=== PATIENT | male | born 1980 | race Caucasian/White ===

== ENCOUNTER 2017-02-21 15:04 | Emergency (ER) | payer OTHER ==
[2017-02-21] MEDS ORDERED: TETRACAINE HCL 0.5% OPH SOLN 2 ML OU ONE (15:56)
--- NOTE | 2017-02-21 16:27 | ER Document Report ---
HPI - HPI Patient complains to provider of: eye pain Onset: Other - 3 weeks Onset/Duration: Persistent Quality of pain: Burning Pain Level: 4 Context: Patient complains of bilateral eye redness and pain for the past 3 weeks that has gradually been getting worse. Patient has been treating [id number] with Visine eyedrops. Patient denies any itching or drainage from the eyes. Patient does report that he has had tearing occasionally that worsened today. Patient feels that whenever he reads small print that his vision is slightly blurred. Patient denies any injury. Patient denies any use of contact lenses or glasses. [facility] and sent here for further evaluation Associated Symptoms: Other - Eye pain and redness Exacerbated by: Denies Relieved by: Denies - ROS ROS below otherwise negative: Yes Systems Reviewed and Negative: Yes All other systems reviewed and negative - CONSTITUTIONAL Constitutional: DENIES: Fever - EENT EENT: REPORTS: Eye problems. DENIES: Congestion - NEURO Neurology: DENIES: Headache - GASTROINTESTINAL Gastrointestinal: DENIES: Nausea, Patient vomiting - MUSCULOSKELETAL Musculoskeletal: DENIES: Neck Pain - DERM Skin Color: Normal, [place] Skin Problems: None Past Medical History - General Information source: Patient - Social History Smoking Status: Never Smoker Frequency of alcohol use: None Drug Abuse: Marijuana Occupation: [employer] Lives with: Family Family History: Reviewed & Not Pertinent - Past Medical History Cardiac Medical History: Reports: Hx Hypertension Renal/ Medical History: Denies: Hx Peritoneal Dialysis GI Medical History: Reports: Hx Gastroesophageal Reflux Disease, Hx Irritable Bowel Psychiatric Medical History: Reports: Hx Anxiety, Hx Attention Deficit Hyperactivity Disorder, Hx Post Traumatic Stress Disorder Past Surgical History: Reports: Hx Orthopedic Surgery - Spinal fusion Vertical Provider Document - CONSTITUTIONAL Agree With Documented VS: Yes Exam Limitations: No Limitations General Appearance: WD/WN, No Apparent Distress - INFECTION CONTROL TRAVEL OUTSIDE OF THE U[place]. IN LAST 30 DAYS: No - HEENT HEENT: Atraumatic, Normocephalic, PERRLA Notes: EOMI, no fluoroscein uptake, no corneal abrasion/dendrite/FB, or ulcer. Right eye intraocular pressure 11, left 14. Consulted with Dr. Garcia at [facility] who advises having patient use preservative free tears and follow-up in the office. Office staff made an appointment for Tuesday the at 8 AM - NECK Neck: Normal Inspection - RESPIRATORY Respiratory: Breath Sounds Normal, No Respiratory Distress - CARDIOVASCULAR Cardiovascular: Regular Rate, Regular Rhythm - MUSCULOSKELETAL/EXTREMETIES Musculoskeletal/Extremeties: MAEW - NEURO Level of Consciousness: Awake, Alert, Appropriate Motor/Sensory: No Motor Deficit - DERM Integumentary: Warm, Dry, No Rash Discharge - Discharge Clinical Impression: Redness, eye Eye pain Qualifiers: Laterality: bilateral Qualified Code(s): H57.13 - Ocular pain, bilateral Condition: Stable Disposition: HOME, SELF-CARE Instructions: Eyedrop Use ([facility]) Additional Instructions: Return immediately for any new or worsening symptoms Followup with your primary care provider, call tomorrow to make a followup appointment Follow up with Dr. Garcia February 25 at 8 AM. You'll need to contact your primary doctor prior to the appointment to obtain your referral. Do not use any visine drops [id number]. Only use preservative free rewetting tears such as systane (make sure it is preservative free) Forms: Return to Work Referrals: SRAVAN GARCIA MD [ACTIVE STAFF] - 02/25/17
[2017-02-21 16:45] VITALS: BP 142/90
== END 2017-02-21 16:45 | disposition home or self-care (01) ==
LOC: ER 15:04
DX: H57.13 Ocular pain, bilateral (principal); H57.8 Other specified disorders of eye and adnexa; I10 Essential (primary) hypertension; K21.9 Gastro-esophageal reflux disease without esophagitis
CPT/HCPCS: 99283

== ENCOUNTER 2017-11-01 16:32 | Emergency (ER) | payer OTHER ==
[2017-11-01] MEDS ORDERED: NORMAL SALINE 1000 ML 1,000 ML IV ONE ×2 (20:48→22:35)
--- NOTE | 2017-11-01 20:52 | ER Document Report ---
ED Medical Screen (RME) - General Chief Complaint: Abdominal Pain Stated Complaint: STOMACH PAIN Time Seen by Provider: 11/01/17 20:47 Mode of Arrival: Ambulatory Information source: Patient Notes: Patient is a 37-year-old male who presents with right lower quadrant left lower quadrant severe abdominal pain that started 5 days ago. He was seen at the emergency department at [facility] on Tuesday and diagnosed with diverticulitis. He was given medications that included Cipro, Flagyl, Reglan, Percocet and was told he would be better in 48 hours. He states he is not feeling any better. He endorses chills but denies any fever, endorses nausea, headache, lightheadedness,m with intermittent diarrhea but denies any vomiting. [facility] was told to come to the emergency department because of how severe his abdominal pain is. He denies any prior abdominal surgery. TRAVEL OUTSIDE OF THE [place] IN LAST 30 DAYS: No - Related Data Allergies/Adverse Reactions: No Known Allergies Allergy (Unverified 06/25/16 16:45) Past Medical History - Past Medical History Cardiac Medical History: Reports: Hx Hypertension Renal/ Medical History: Denies: Hx Peritoneal Dialysis GI Medical History: Reports: Hx Gastroesophageal Reflux Disease, Hx Irritable Bowel Psychiatric Medical History: Reports: Hx Anxiety, Hx Attention Deficit Hyperactivity Disorder, Hx Post Traumatic Stress Disorder Past Surgical History: Reports: Hx Orthopedic Surgery - Spinal fusion Review of Systems - Review of Systems Constitutional: Chills. denies: Fever Gastrointestinal: Abdominal pain, Diarrhea, Nausea, Poor appetite. denies: Vomiting Genitourinary: denies: Dysuria Physical Exam - Vital signs Vitals: Temp Pulse Resp BP Pulse Ox 98.7 F 81 20 147/103 H 98 11/01/17 16:36 11/01/17 16:36 11/01/17 16:36 11/01/17 16:36 11/01/17 16:36 - Notes Notes: General: Alert and oriented, appears uncomfortable, vital signs stable no fever Abdomen: Tender to palpation and right lower quadrant, suprapubic and left lower quadrant areas. Voluntary guarding noted. No rigidity. Normal bowel sounds. Course - Re-evaluation Re-evalutation: 11/01/17 20:52 I have greeted and performed a rapid initial assessment of this patient. A comprehensive ED assessment and evaluation of the patient, analysis of test results and completion of the medical decision making process will be conducted by additional ED providers. - Vital Signs Vital signs: Temp Pulse Resp BP Pulse Ox 98.7 F 81 20 147/103 H 98 11/01/17 16:36 11/01/17 16:36 11/01/17 16:36 11/01/17 16:36 11/01/17 16:36
[2017-11-01 22:09] LABS: ABSOLUTE BASOPHILS # (AUTO) 0.1 10^3/uL (0.0-0.2); ABSOLUTE EOSINOPHILS # (AUTO) 0.1 10^3/uL (0.0-0.6); ABSOLUTE LYMPHOCYTES (AUTO) 1.6 10^3/uL (0.5-4.7); ABSOLUTE MONOCYTES (AUTO) 0.6 10^3/uL (0.1-1.4); ABSOLUTE NEUT (AUTO) 3.9 10^3/uL (1.7-8.2); BASOPHILS % (AUTO) 0.9 % (0-2); EOSINOPHILS % (AUTO) 2.2 % (0-6); HEMATOCRIT 45.9 % (37.9-51.0); HEMOGLOBIN 16.2 g/dL (13.5-17.0); LYMPHOCYTES % (AUTO) 25.1 % (13-45); MEAN CORPUSCULAR HEMOGLOBIN 31.8 pg (27.0-33.4); MEAN CORPUSCULAR HGB CONC 35.2 g/dL (32.0-36.0); MEAN CORPUSCULAR VOLUME 90 fl (80-97); PLATELET COUNT 247 10^3/uL (150-450); RED BLOOD COUNT 5.09 10^6/uL (4.35-5.55); RED CELL DISTRIBUTION WIDTH 12.9 % (11.5-14.0); SEGMENTED NEUTROPHILS % (AUTO) 62.8 % (42-78); TOTAL CELLS COUNTED % (AUTO) 100 %; WHITE BLOOD COUNT 6.2 10^3/uL (4.0-10.5)
[2017-11-01 22:26] LABS: APPEARANCE,URINE SLIGHTLY-CLOUDY; BILIRUBIN,URINE NEGATIVE (NEGATIVE); COLOR,URINE YELLOW; GLUCOSE, URINE NEGATIVE (NEGATIVE); KETONES,URINE 80 mg/dL (NEGATIVE); LEUKOCYTE ESTERASE,URINE TRACE (NEGATIVE); NITRITE,URINE NEGATIVE (NEGATIVE); PROTEIN,URINE NEGATIVE (NEGATIVE); URINE SPECIFIC GRAVITY 1.018; UROBILINOGEN,URINE NEGATIVE mg/dL (<2.0)
[2017-11-01 22:29] LABS: ALANINE AMINOTRANSFERASE 258 U/L (21-72); ALKALINE PHOSPHATASE 59 U/L (38-126); ANION GAP 12 (5-19); ASPARTATE AMINO TRANSFERASE 164 U/L (17-59); BILIRUBIN,DIRECT 0.4 mg/dL (0.0-0.4); BILIRUBIN,TOTAL 0.6 mg/dL (0.2-1.3); BLOOD UREA NITROGEN 10 mg/dL (7-20); CALCIUM 10.1 mg/dL (8.4-10.2); CARBON DIOXIDE 29 mmol/L (22-30); CHLORIDE 102 mmol/L (98-107); GLUCOSE 82 mg/dL (75-110); LIPASE 59.9 U/L (23-300); POTASSIUM 4.7 mmol/L (3.6-5.0); SODIUM 142.5 mmol/L (137-145); TOTAL PROTEIN 7.4 g/dL (6.3-8.2)
[2017-11-01] MEDS ORDERED: MORPHINE SULFATE 10 MG/ML INJ IV ONE (22:35)
[2017-11-01] MEDS ORDERED: ONDANSETRON HCL INJ/PF 4 MG/2 ML SDV IV ONE (22:35)
--- NOTE | 2017-11-01 23:29 | RADIOLOGY REPORT (SQ) ---
EXAM DESCRIPTION: CT ABD/PELVIS WITH IV ONLY COMPLETED DATE/TIME: 11/01/2017 11:14 pm REASON FOR STUDY: RLQ/LLQ pain, hx of diverticulitis COMPARISON: None. TECHNIQUE: CT scan of the abdomen and pelvis performed using helical scanning technique with dynamic intravenous contrast injection. No oral contrast. Images reviewed with lung, soft tissue, and bone windows. Reconstructed coronal and sagittal MPR images reviewed. Delayed images for evaluation of the urinary system also acquired. All images stored on PACS. All CT scanners at this facility use dose modulation, iterative reconstruction, and/or weight based d osing when appropriate to reduce radiation dose to as low as reasonably achievable (ALARA). [facility]: Dose Right [facility]: CareDose [facility]: Dose Right [facility]: Teradose 4D [facility]: HackMyPic CONTRAST TYPE AND DOSE: contrast/concentration: Isovue 370.00 mg/ml; Total Contrast Delivered: 100.0 ml; Total Saline Delivered: 45.1 ml RENAL FUNCTION: Creatinine 0.9 RADIATION DOSE: CT Rad equipment meets quality standard of care and radiation dose reduction techniq ues were employed. CTDIvol: 20.3 - 20.7 mGy. DLP: 2382 mGy-cm.. LIMITATIONS: None. FINDINGS: LOWER CHEST: No significant findings. No nodules or infiltrates. LIVER: Normal size. No masses. No dilated ducts. SPLEEN: Normal size. No focal lesions. PANCREAS: No masses. No significant calcifications. No adjacent inflammation or peripancreatic fluid collections. Pancreatic duct not dilated. GALLBLADDER: No identified stones by CT criteria. No inflammatory changes to suggest cholecystitis. ADRENAL GLANDS: No significant masses or asymmetry. RIGHT KIDNEY AND URETER: No solid masses. No significant calcifications. No hydronephrosis or hyd roureter. LEFT KIDNEY AND URETER: No solid masses. No significant calcifications. No hydronephrosis or hydr oureter. AORTA AND VESSELS: No aneurysm. No dissection. Renal arteries, SMA, celiac without stenosis. RETROPERITONEUM: No retroperitoneal adenopathy, hemorrhage or masses. BOWEL AND PERITONEAL CAVITY: Mild upper sigmoid inflammatory changes consistent with diverticulitis. No free fluid or peritoneal masses. APPENDIX: Normal. PELVIS: No mass. No free fluid. Normal bladder. ABDOMINAL WALL: No masses. No hernias. BONES: Posterior fusion at the L4 through S1 levels with interbody disc spacers. No acute findings. OTHER: No other significant finding. IMPRESSION: Mild diverticulitis in the upper sigmoid colon. No fluid collection. TECHNICAL DOCUMENTATION: JOB ID: [id number] [place]-72 Quality ID # [id number]: Final reports with documentation of one or more dose reduction techniques (e.g., Au tomated exposure control, adjustment of the mA and/or kV according to patient size, use of iterative reconstruction technique) 2010 [employer]- All Rights Reserved
[2017-11-02] MEDS ORDERED: ONDANSETRON ODT 4 MG TAB (6 TAB/ER DISP) PO PRN (01:21)
--- NOTE | 2017-11-02 01:21 | ER Document Report ---
ED General - General Chief Complaint: Abdominal Pain Stated Complaint: STOMACH PAIN Time Seen by Provider: 11/01/17 20:47 Mode of Arrival: Ambulatory Notes: Patient is a 37-year-old male who presents with complaints of lower abdominal pain as well as some nausea. He has had decreased appetite. He seen at [facility] emergency room 2 days ago and diagnosed with diverticulitis. He was placed on Cipro, Flagyl, Percocet, and Reglan. Says since her medications become more nauseous feels as if he is not getting her. He says he has had decreased appetite and has not been eating much. Says he was taking the Percocet which should help with his pain but he is now out and his pain has started to increase again. He saw his primary care doctor today who told him to go back to the ER. He therefore came to our emergency department for reevaluation. TRAVEL OUTSIDE OF THE U[place] IN LAST 30 DAYS: No - Related Data Allergies/Adverse Reactions: No Known Allergies Allergy (Unverified 06/25/16 16:45) Past Medical History - General Information source: Patient - Social History Smoking Status: Never Smoker Chew tobacco use (# tins/day): No Frequency of alcohol use: Rare Drug Abuse: Marijuana Family History: Reviewed & Not Pertinent Patient has suicidal ideation: No Patient has homicidal ideation: No - Past Medical History Cardiac Medical History: Reports: Hx Hypertension Renal/ Medical History: Denies: Hx Peritoneal Dialysis GI Medical History: Reports: Hx Gastroesophageal Reflux Disease, Hx Irritable Bowel Psychiatric Medical History: Reports: Hx Anxiety, Hx Attention Deficit Hyperactivity Disorder, Hx Post Traumatic Stress Disorder Past Surgical History: Reports: Hx Orthopedic Surgery - Spinal fusion Review of Systems - Review of Systems Notes: My Normal Review Basic REVIEW OF SYSTEMS: CONSTITUTIONAL : Denies fever, chills, or sweats. Denies recent illness. EENT: Denies eye, ear, throat, or mouth pain or symptoms. Denies nasal or sinus congestion. CARDIOVASCULAR: Denies chest pain. RESPIRATORY: Denies cough, cold, or chest congestion. Denies shortness of breath, difficulty breathing, or wheezing. GASTROINTESTINAL: Pain in lower abdomen. Some nausea. GENITOURINARY: Denies difficulty urinating, painful urination, burning, frequency, or blood in urine. MUSCULOSKELETAL: Denies neck or back pain or joint pain or swelling. SKIN: Denies rash or skin lesions. NEUROLOGICAL: Denies altered mental status or loss of consciousness. Denies headache. Denies weakness or paralysis or loss of use of either side. Denies problems with gait or speech. Denies sensory or motor loss. ALL OTHER SYSTEMS REVIEWED AND NEGATIVE. Physical Exam - Vital signs Vitals: Temp Pulse Resp BP Pulse Ox 98.7 F 81 20 147/103 H 98 11/01/17 16:36 11/01/17 16:36 11/01/17 16:36 11/01/17 16:36 11/01/17 16:36 - Notes Notes: General Appearance: Well nourished, alert, cooperative, no acute distress, mild obvious discomfort. Vitals: reviewed, See vital signs table. Head: no swelling or tenderness to the head Eyes: PERRL, EOMI, Conjuctiva clear Mouth: No decreasd moisture Throat: No tonsillar inflammation, No airway obstruction, No lymphadenopathy Neck: Supple, no neck tenderness, No thyromegaly Lungs: No wheezing, No rales, No rhonci, No accessory muscle use, good air exchange bilaterally. Heart: Normal rate, Regular rythm, No murmur, no rub Abdomen: Normal BS, soft, No rigidity, mild pain to palpation over the lower abdomen. No pain to palpation over the superior portion of the abdomen., No guarding, no rebound, no abdominal masses, no organomegaly Extremities: strength 5/5 in all extremities, good pulses in all extremities, no swelling or tenderness in the extremities, no edema. Skin: warm, dry, appropriate color, no rash Neuro: speech clear, oriented x 3, normal affect, responds appropriately to questions. Course - Re-evaluation Re-evalutation: 11/02/17 05:32 After the Zofran patient is feeling much improved. He has been able to drink without difficulty. I will have him stop the Reglan. I will place him on Zofran instead. I will prescribe him a few more days of her cassette. Informed him to only take Percocet when he absolutely needs it. I will have him continue the antibiotics. CT scan does show he has just mild diverticulitis so I suspect that the antibiotics are indeed working. He has no leukocytosis. He looks well. Feel he is safe to be discharged home. I encourage him return to ER if he has worsening pain, fevers, intractable vomiting, or feels unwell. Patient agrees with plan and will be discharged home. Dictation of this chart was performed using voice recognition software; therefore, there may be some unintended grammatical errors. - Vital Signs Vital signs: Temp Pulse Resp BP Pulse Ox 98.2 F 68 12 145/98 H 97 11/02/17 01:28 11/02/17 01:28 11/02/17 01:28 11/02/17 01:28 11/02/17 01:28 - Laboratory Result Diagrams: 11/01/17 21:50 11/01/17 21:50 Laboratory results interpreted by me: 11/01/17 11/01/17 21:50 21:55 AST 164 H ALT 258 H Urine Ketones 80 H Ur Leukocyte Esterase TRACE H Discharge - Discharge Clinical Impression: Diverticulitis Condition: Good Disposition: HOME, SELF-CARE Instructions: Oral Narcotic Medication ([facility]) Additional Instructions: Diverticulitis You have been diagnosed as having diverticulitis. This is an inflammation of a small pouch attached to the colon, called a diverticulum. Many of these small pouches can form on the colon as you get older. They are often caused by constipation. When inflamed or infected, symptoms arise -- usually abdominal pain, constipation or diarrhea, fever, and blood in the stool. Severe diverticulitis may require hospitalization. More mild cases are usually treated with antibiotics and clear liquid diet. As you improve, a diet low in residue (one which forms little stool) is prescribed. When you are better, you should eat a high-fiber diet. Stool softeners ( like Metamucil) are usually recommended. Call the doctor or go to the hospital if there is increasing pain, vomiting , high fever, large amounts of blood passed, or if bowel movements cease. Please stop taking the Reglan. Please take the Zofran every 4 hours for your nausea. Follow up in 2 days with your doctor for reevaluation. Return to the ER if you have worsening pain, fevers, intractable vomiting, or have any further concerns. Prescriptions: Ondansetron [Zofran Odt 4 mg Tablet] 1 tab PO Q4H PRN #15 tab.rapdis PRN Reason: For Nausea/Vomiting Oxycodone HCl/Acetaminophen [Percocet 5-325 mg Tablet] 1 tab PO Q4H PRN #12 tablet PRN Reason: Forms: Return to Work
[2017-11-02 01:29] VITALS: BP 145/98
== END 2017-11-02 01:42 | disposition home or self-care (01) ==
LOC: ER 16:32
DX: K57.92 Diverticulitis of intestine, part unspecified, without perforation or abscess without bleeding (principal); R10.30 Lower abdominal pain, unspecified; R11.0 Nausea; R63.0 Anorexia; Z79.899 Other long term (current) drug therapy
CPT/HCPCS: 99284; 96361; 96374; 96375; 36415; 83690; 85025; 80053; 81001; 74177; J2270; J2405; J7030

== ENCOUNTER 2018-02-20 10:06 | Emergency (ER) | payer OTHER ==
[2018-02-20] MEDS ORDERED: FENTANYL CITRATE INJ/PF 100 MCG/2 ML AMPUL IV ONE (10:53)
[2018-02-20] MEDS ORDERED: RINGERS SOLUTION,LACTATED 1,000 ML IV ONE (10:54)
--- NOTE | 2018-02-20 10:56 | ER Document Report ---
ED Medical Screen (RME) - General Chief Complaint: Sore Throat Stated Complaint: SORE THROAT Time Seen by Provider: 02/20/18 10:53 Notes: RAPID MEDICAL EVALUATION DISCLOSURE I have seen this patient as part of a Rapid Medical Evaluation and, if applicable, placed any initially appropriate orders. The patient will be seen and fully evaluated, including a full history and physical exam, by a provider ( in Main ED or Fast Track) when a room becomes available. 37-year-old male sent here by Dr. Bautitsa at the [facility] for continued and persistent sore throat difficulty breathing/swallowing and fevers that have progressively worsened. He has also had 11 pound weight loss in the past 1 week, he reports. He reports that he is unable to eat or drink anything due to the pain. As of this morning, he had a fever of 101 Fahrenheit. As of this morning, he is having difficulty swallowing his secretions. He is currently on day 6 of Augmentin and is not improving. EXAM Midline uvula No significant tonsillar swelling Mild to moderate oropharyngeal erythema Left submandibular lymphadenopathy TRAVEL OUTSIDE OF THE [place] IN LAST 30 DAYS: No - Related Data Allergies/Adverse Reactions: No Known Allergies Allergy (Verified 02/20/18 10:07) Past Medical History - Past Medical History Cardiac Medical History: Reports: Hx Hypertension Renal/ Medical History: Denies: Hx Peritoneal Dialysis GI Medical History: Reports: Hx Gastroesophageal Reflux Disease, Hx Irritable Bowel Psychiatric Medical History: Reports: Hx Anxiety, Hx Attention Deficit Hyperactivity Disorder, Hx Post Traumatic Stress Disorder Past Surgical History: Reports: Hx Orthopedic Surgery - Spinal fusion Physical Exam - Vital signs Vitals: Temp Pulse Resp BP Pulse Ox 98.4 F 86 20 137/95 H 96 02/20/18 10:17 02/20/18 10:17 02/20/18 10:02/20/18 10:02/20/18 10:17 Course - Vital Signs Vital signs: Temp Pulse Resp BP Pulse Ox 98.4 F 86 20 137/95 H 96 02/20/18 10:17 02/20/18 10:17 02/20/18 10:17 02/20/18 10:02/20/18 10:17
[2018-02-20 11:25] LABS: ABSOLUTE BASOPHILS # (AUTO) 0.1 10^3/uL (0.0-0.2); ABSOLUTE EOSINOPHILS # (AUTO) 0.1 10^3/uL (0.0-0.6); ABSOLUTE MONOCYTES (AUTO) 0.7 10^3/uL (0.1-1.4); ABSOLUTE NEUT (AUTO) 5.9 10^3/uL (1.7-8.2); BASOPHILS % (AUTO) 0.7 % (0-2); EOSINOPHILS % (AUTO) 0.9 % (0-6); HEMATOCRIT 44.8 % (37.9-51.0); HEMOGLOBIN 15.6 g/dL (13.5-17.0); LYMPHOCYTES % (AUTO) 13.4 % (13-45); MEAN CORPUSCULAR HGB CONC 34.8 g/dL (32.0-36.0); MEAN CORPUSCULAR VOLUME 89 fl (80-97); MONOCYTES % (AUTO) 9.3 % (3-13); PLATELET COUNT 241 10^3/uL (150-450); RED BLOOD COUNT 5.02 10^6/uL (4.35-5.55); RED CELL DISTRIBUTION WIDTH 12.9 % (11.5-14.0); SEGMENTED NEUTROPHILS % (AUTO) 75.7 % (42-78); TOTAL CELLS COUNTED % (AUTO) 100 %; WHITE BLOOD COUNT 7.8 10^3/uL (4.0-10.5)
[2018-02-20 11:49] LABS: ANION GAP 13 (5-19); BLOOD UREA NITROGEN 14 mg/dL (7-20); CALCIUM 9.9 mg/dL (8.4-10.2); CARBON DIOXIDE 31 mmol/L (22-30); CHLORIDE 100 mmol/L (98-107); GLUCOSE 97 mg/dL (75-110); SODIUM 144.3 mmol/L (137-145)
[2018-02-20] MEDS ORDERED: NORMAL SALINE 1000 ML 1,000 ML IV ONE (11:57)
[2018-02-20] MEDS ORDERED: KETOROLAC TROMETHAMINE INJ/PF 30 MG/1 ML SDV IV ONE (11:57)
[2018-02-20] MEDS ORDERED: DEXAMETHASONE SOD PHOS INJ 10 MG/1 ML VIAL IV ONE (11:57)
--- NOTE | 2018-02-20 13:24 | ER Document Report ---
ED General - General Chief Complaint: Sore Throat Stated Complaint: SORE THROAT Time Seen by Provider: 02/20/18 10:53 TRAVEL OUTSIDE OF THE [place] IN LAST 30 DAYS: No - HPI Patient complains to provider of: Sore throat Notes: Patient coming in for evaluation of sore throat. Patient ongoing for approximate past 7 days been on Augmentin for the last 6 or no improvement of symptoms. Patient denies taking any other medications. Patient denies any fevers chills nausea vomiting states difficulty in swallowing slight difficulty breathing however no difficulty talking. Upon my evaluation patient is nontoxic phonating well no signs of any rest or distress. Patient states compliance with antibiotics and has approximately 1 more days been on twice a day for the last 6 days. No signs of diabetes no recent travel no fevers no chills no nausea no vomiting no diarrhea. - Related Data Allergies/Adverse Reactions: No Known Allergies Allergy (Verified 02/20/18 10:07) Past Medical History - Social History Smoking Status: Former Smoker Frequency of alcohol use: former Drug Abuse: Marijuana Family History: Reviewed & Not Pertinent Patient has suicidal ideation: No Patient has homicidal ideation: No - Past Medical History Cardiac Medical History: Reports: Hx Hypertension Renal/ Medical History: Denies: Hx Peritoneal Dialysis GI Medical History: Reports: Hx Gastroesophageal Reflux Disease, Hx Irritable Bowel Psychiatric Medical History: Reports: Hx Anxiety, Hx Attention Deficit Hyperactivity Disorder, Hx Post Traumatic Stress Disorder Past Surgical History: Reports: Hx Orthopedic Surgery - Spinal fusion Review of Systems - Review of Systems Constitutional: No symptoms reported EENT: Throat pain Cardiovascular: No symptoms reported Respiratory: Short of breath Gastrointestinal: No symptoms reported Genitourinary: No symptoms reported Male Genitourinary: No symptoms reported Musculoskeletal: No symptoms reported Skin: No symptoms reported Hematologic/Lymphatic: No symptoms reported Neurological/Psychological: No symptoms reported -: Yes All other systems reviewed and negative Physical Exam - Vital signs Vitals: Temp Pulse Resp BP Pulse Ox 98.4 F 86 20 137/95 H 96 02/20/18 10:17 02/20/18 10:17 02/20/18 10:17 02/20/18 10:17 02/20/18 10:17 Interpretation: Normal - General General appearance: Appears well, Alert - HEENT Head: Normocephalic, Atraumatic Eyes: Normal Conjunctiva: Normal Cornea: Normal Extraocular movements intact: Yes Eyelashes: Normal Pupils: PERRL Anterior chamber: Normal Fundascopic: Normal Ears: Normal External canal: Normal Tympanic membrane: Normal Sinus: Normal Nasal: Normal Mouth/Lips: Normal Pharynx: Other - Ulcerations of bilateral tonsils with mild swelling there is no uvula edema there is no signs of airway compromise no signs of tonsillar abscess. Neck: Normal - Respiratory Respiratory status: No respiratory distress Chest status: Nontender Breath sounds: Normal Chest palpation: Normal - Cardiovascular Rhythm: Regular Heart sounds: Normal auscultation Murmur: No - Abdominal Inspection: Normal Distension: No distension Bowel sounds: Normal Tenderness: Nontender Organomegaly: No organomegaly - Back Back: Normal, Nontender - Extremities General upper extremity: Normal inspection, Nontender, Normal color, Normal ROM , Normal temperature General lower extremity: Normal inspection, Nontender, Normal color, Normal ROM , Normal temperature, Normal weight bearing. No: Johann's sign - Neurological Neuro grossly intact: Yes Cognition: Normal Orientation: AAOx4 Greg Coma Scale Eye Opening: Spontaneous Rincon Coma Scale Verbal: Oriented Greg Coma Scale Motor: Obeys Commands Rincon Coma Scale Total: 15 Speech: Normal Motor strength normal: LUE, RUE, LLE, RLE Sensory: Normal - Psychological Associated symptoms: Normal affect, Normal mood - Skin Skin Temperature: Warm Skin Moisture: Dry Skin Color: Normal Course - Re-evaluation Re-evalutation: 02/20/18 15:37 Ulcerations consistent with a viral pathology for the patient's sore throat. Strep screen was negative however did encourage patient to continue his antibiotics to finish up the course. Patient monitors and was also negative. Explained patient will likely viral will give the patient a dose of Decadron send him home for some prednisone to help out with any swelling Magic mouthwash and Lortab elixir to help out with his pain. Patient was grateful for his care was discharged home. - Vital Signs Vital signs: Temp Pulse Resp BP Pulse Ox 98.4 F 86 18 139/97 H 99 02/20/18 13:47 02/20/18 10:17 02/20/18 13:47 02/20/18 13:47 02/20/18 13:46 - Laboratory Result Diagrams: 02/20/18 11:05 02/20/18 11:05 Laboratory results interpreted by me: 02/20/18 11:05 Carbon Dioxide 31 H Discharge - Discharge Clinical Impression: Viral pharyngitis Condition: Good Disposition: HOME, SELF-CARE Instructions: Sore Throat ([facility]) Additional Instructions: Your evaluation today looks to be more consistent with a viral pharyngitis or viral sore throat. I highly recommend to continue and finish up her antibiotics as it although your strep testing today is negative he may have strep infection prior we will like to continue antibiotics and finish those to completion. Your mono testing also returned negative for nausea laboratory studies otherwise not show any signs of significant pathology. We will treat her pain with Tylenol Motrin. He may also take the Lortab elixir for severe pain. Also recommend using the Magic mouthwash as prescribed. We will also start you on small amount of steroids for next few days to aid in the swelling and inflammation. Return to ER symptoms worsen Prescriptions: Hydrocodone/Acetaminophen [Lortab 7.5-325 mg/15 ml Oral Soln] 10 ml PO Q6H PRN # 90 ml PRN Reason: Magic Mouth Wash 5 ml PO Q6 PRN #150 ml PRN Reason: Prednisone [Deltasone 20 mg Tablet] 2 tab PO DAILY 5 Days tablet Forms: Return to Work
[2018-02-20 13:51] VITALS: BP 139/97
== END 2018-02-20 13:51 | disposition home or self-care (01) ==
LOC: ER 10:06
DX: J02.8 Acute pharyngitis due to other specified organisms (principal); B97.89 Other viral agents as the cause of diseases classified elsewhere; R06.02 Shortness of breath; I10 Essential (primary) hypertension; Z87.891 Personal history of nicotine dependence
CPT/HCPCS: 99283; 36415; 87040; 87070; 87880; 85025; 86308; 80048; J3010; J1885; J7030; J1100

== ENCOUNTER 2018-06-09 08:50 | Emergency (ER) | payer OTHER ==
--- NOTE | 2018-06-09 09:15 | ER Document Report ---
ED General - General Chief Complaint: Chest Pressure Stated Complaint: CHEST PAIN Time Seen by Provider: 06/09/18 08:59 TRAVEL OUTSIDE OF THE [place]. IN LAST 30 DAYS: No - HPI Notes: Patient is a 38-year-old male with a history of hypertension who presents to the ED complaining of palpitations over the last 4 hours with dyspnea on exertion and chest pressure that developed this morning. Activity worsens his symptoms. Patient states that the symptoms do not radiate. Patient states that he was on airplane for about 8 hours yesterday. He is not on any blood thinners. Patient denies any cigarette smoking, but does admit to marijuana. He denies any other IV drug use. Denies drug allergies. Denies any recent surgery/trauma, personal cancer history, hormone use, or previous DVT/PE. He has not had any other recent illness. He has been eating and drinking without any difficulties. He is urinating normally and having normal bowel movements. No significant past family history. Denies any headache, fever, URI, sore throat, syncope, cough, abdominal pain, nausea/vomiting/diarrhea, urinary retention, dysuria, hematuria, back pain, loss of control of bowel or bladder, numbness/tingling, muscle paralysis/weakness, or rash. - Related Data Allergies/Adverse Reactions: No Known Allergies Allergy (Verified 02/20/18 10:07) Past Medical History - Social History Smoking Status: Current Some Day Smoker - marijuana Family History: Reviewed & Not Pertinent - Past Medical History Cardiac Medical History: Reports: Hx Hypertension Renal/ Medical History: Denies: Hx Peritoneal Dialysis GI Medical History: Reports: Hx Gastroesophageal Reflux Disease, Hx Irritable Bowel Psychiatric Medical History: Reports: Hx Anxiety, Hx Attention Deficit Hyperactivity Disorder, Hx Post Traumatic Stress Disorder Past Surgical History: Reports: Hx Orthopedic Surgery - Spinal fusion Review of Systems - Review of Systems -: Yes All other systems reviewed and negative Physical Exam - Vital signs Vitals: Pulse Ox 99 06/09/18 08:53 - Notes Notes: PHYSICAL EXAMINATION: GENERAL: Well-appearing, well-nourished and in no acute distress. HEAD: Atraumatic, normocephalic. EYES: Pupils equal round and reactive to light, extraocular movements intact, sclera anicteric, conjunctiva are normal. ENT: Nares patent and without discharge. oropharynx clear without exudates. No tonsilar hypertrophy or erythema. Moist mucous membranes. NECK: Normal range of motion, supple without lymphadenopathy Chest: Non-tender LUNGS: Breath sounds clear to auscultation bilaterally and equal. No wheezes rales or rhonchi. HEART: Regular rate and rhythm without murmurs, rubs, gallops. Tachycardic at 105 currently (varies 93-110) ABDOMEN: Soft, nontender, nondistended abdomen. No guarding, no rebound. No masses appreciated. Normal bowel sounds present. No CVA tenderness bilaterally. Musculoskeletal: FROM to passive/active. Strength 5+/5. Johann neg. No asymmetry to LE's. Extremities: No cyanosis, clubbing, or edema b/l. Peripheral pulses 2+. Capillary refill less than 3 seconds. NEUROLOGICAL: Normal speech, normal gait. PSYCH: Normal mood, normal affect. SKIN: Warm, Dry, normal turgor, no rashes or lesions noted. Course - Re-evaluation Re-evalutation: 06/09/18 09:08 Pt has concerning history with recent air travel, MORALES, palpitations, chest pressure with EKG changes. EKG shows heart strain and T wave inversions. He is tachycardic, but ranges from 93-110. Labs, imaging ordered including CTA of the chest with concern for PE. 06/09/18 10:[address] Srinivasan. B/l and extensive PE's with right heart strain noted. He recommended consult with [facility] as he believes this patient is a good candidate for TPA administration. Call placed to [facility]. Reviewed with Dr. Bach who is in agreement with plan thus far. I will wait for consult prior to starting any lovenox. Another fluid bolus ordered and we will obtain a 2nd IV line. Pt is currently at 99% 2L via MN, 123/92, HR of 87. Pt states that he has no new concerns or complaints. Reviewed with patient his case and possible transfer to [facility] which he is in agreement with. 06/09/18 10:50 2nd call placed to [facility] for no response. Awaiting call from Dr. Kris Gupta per transfer center. 06/09/18 11:14 Still no response from [facility] lovenox 120mcg ordered. 06/09/18 11:36 3rd call placed to transfer center and rang to voicemail. 06/09/18 11:41 4th call, spoke with transfer center who has been in communication with the facility and they are working on consults and who will be admitting. She will call me back thereafter. 06/09/18 12:48 Called the transfer center for update. She told me that Dr. Gupta are accepting. We will start working on transport. Vitals are currently stable. No new concerns or complaints. Pt in agreement with plan. 06/09/18 13:00 Received #'s so that I can speak with Dr. Gillis as I would feel more comfortable relaying this case. 06/09/18 13:[address] Gillis. He was able to view the films as they were read by his radiology group. He agrees that this patient is a good candidate for tPa. Currently working on room assignment. We will be continuing transfer at this time. 06/09/18 15:47 [facility] called. they are unable to provide ground transport for another 4 hours, as is similar with our end as well. They would like to bring this patient by air per the prepper. Pt is stable at this time and we would prefer ground, but [facility] Wharton wants him there sooner than the trucks can provide for the tPa. I did review this with the patient and he is in agreement with wanting to fly. Reviewed with Dr. Preston who is in agreement. 06/09/18 16:15 I spoke in length with Dr. Gupta who is their prepper. Dr. Gupta is now refusing admission as patient has been stable throughout his stay without any hemodynamic compromise/decompensation. He states that he would not place that patient in the ICU at their hospital if he was there because his vitals have remained acceptable with 2 L nasal cannula at 100%. Dr. Gupta did review all the risk and benefit and research on heparin versus TPA and states that they have the same outcome if he is hemodynamically stable. During this conversation was told that the helicopter was about 5 minutes away. I did call immediately to our hospitalist thereafter and reviewed the case with him. Dr. Infante states that right heart strain on an acute PE is not a stable PE and that he needs to be transferred. I then called Dr. Gupta back and reviewed that our hospitalist will not accept here and if he is still willing to accept under his care to the ICU even though he may not be given TPA. Dr. Gupta again stated that he does not need to be in the ICU and that he believes that our hospital should be able to admit this patient even with the risk of decompensation. Dr. Gupta again refused admission. I did review with him that my hospitalist will not admit this patient and if that is the case then I need to speak with their hospitalist at [facility] to see if they are willing to accept admission. At least that way they have the services available if needed for any decompensation in the patient's health. I am awaiting a phone call back from their hospitalist. At this time (1619), the helicopter is here and is holding currently for further instruction. I did review this case in full with the patient and explained to him in detail what and why the decisions are being made as they are. Patient has so far been understanding and is in agreement with plan. Patient states that he is comfortable not having any concerns or complaints when he is lying down, but when he tries to stand up or move even throughout his stay his symptoms worsen and he has worsening chest pressure and trouble breathing. 06/09/18 16:48 Spoke with the radiologist CLAUDIA who is asking where the patient is and why is he not there yet. I told him everything from above. he is going to talk with Dr. Gillis and they will see if there is anything they can figure out. 06/09/18 16:[address] Gupta again to reiterate that the patient was having active chest pain and trouble breathing when we stood him up. I reiterated also that he has remained stable because he has been laying down and not moving. Dr. Gupta again states that he is comfortable saying that this he is doing well because his vitals have remained stable when he is lying down. This scenario has not changed his mind. 06/09/18 17:[address] Guzman, hospitalist, and reviewed this patient's entire case and our scenario that the bird is currently grounded at our facility due to situational change. I reviewed with her our predicament that our hospice will not accept and Dr. Gupta is refusing admission to the ICU and does not recommend TPA as well as the radiologist department not being in the loop of the decision- making currently being held. While on the phone, flight medic came to my side and told me that the patient is having active chest pain while he is lying supine which I did relay to Dr. Guzman. We went over labs as well as vitals currently. After discussion Dr. Guzman states that she will call Dr. Gupta and will call me back as she does not have pulmonology transaction advisory services manager this weekend. Upon completion of the phone call, I ordered a new troponin, BMP, and a stat EKG. 06/09/18 17:10 Dr. Guzman called me back. She accepted admission. She would like his stat summary so she can start reviewing everything. Dr. Preston notified. We will go by flight. Pt in agreement. - Vital Signs Vital signs: Temp Pulse Resp BP Pulse Ox 97.7 F 88 22 H 134/100 H 99 06/09/18 08:54 06/09/18 08:54 06/09/18 17:23 06/09/18 17:23 06/09/18 17:23 - Laboratory Result Diagrams: 06/09/18 09:13 06/09/18 17:16 Laboratory results interpreted by me: 06/09/18 06/09/18 06/09/18 09:13 09:13 17:16 Chloride 109 H 108 H NT-Pro-B Natriuret Pep 2340 H Total Protein 6.1 L Critical Care Note - Critical Care Note Total time excluding time spent on procedures (mins): 60 Discharge - Discharge Clinical Impression: Pulmonary embolism Qualifiers: Pulmonary embolism type: other Chronicity: acute Acute cor pulmonale presence: with acute cor pulmonale Qualified Code(s): I26.09 - Other pulmonary embolism with acute cor pulmonale Condition: Stable Disposition: Count includes the [facility]
[2018-06-09 09:32] LABS: ABSOLUTE BASOPHILS # (AUTO) 0.1 10^3/uL (0.0-0.2); ABSOLUTE EOSINOPHILS # (AUTO) 0.3 10^3/uL (0.0-0.6); ABSOLUTE LYMPHOCYTES (AUTO) 1.4 10^3/uL (0.5-4.7); ABSOLUTE MONOCYTES (AUTO) 0.5 10^3/uL (0.1-1.4); ABSOLUTE NEUT (AUTO) 5.8 10^3/uL (1.7-8.2); BASOPHILS % (AUTO) 0.7 % (0-2); EOSINOPHILS % (AUTO) 3.8 % (0-6); HEMATOCRIT 40.3 % (37.9-51.0); HEMOGLOBIN 14.3 g/dL (13.5-17.0); LYMPHOCYTES % (AUTO) 17.4 % (13-45); MEAN CORPUSCULAR HEMOGLOBIN 31.5 pg (27.0-33.4); MEAN CORPUSCULAR HGB CONC 35.5 g/dL (32.0-36.0); MEAN CORPUSCULAR VOLUME 89 fl (80-97); MONOCYTES % (AUTO) 6.7 % (3-13); PLATELET COUNT 162 10^3/uL (150-450); RED BLOOD COUNT 4.53 10^6/uL (4.35-5.55); RED CELL DISTRIBUTION WIDTH 13.2 % (11.5-14.0); SEGMENTED NEUTROPHILS % (AUTO) 71.4 % (42-78); TOTAL CELLS COUNTED % (AUTO) 100 %; WHITE BLOOD COUNT 8.1 10^3/uL (4.0-10.5)
--- NOTE | 2018-06-09 09:36 | RADIOLOGY REPORT (SQ) ---
EXAM DESCRIPTION: CHEST SINGLE VIEW COMPLETED DATE/TIME: 06/09/2018 9:21 am REASON FOR STUDY: CP New onset chest pain, no trauma COMPARISON: None. EXAM PARAMETERS: NUMBER OF VIEWS: One view. TECHNIQUE: Single frontal radiographic view of the chest acquired. RADIATION DOSE: NA LIMITATIONS: None. FINDINGS: LUNGS AND PLEURA: No opacities, masses or pneumothorax. No pleural effusion. MEDIASTINUM AND HILAR STRUCTURES: No masses. Contour normal. HEART AND VASCULAR STRUCTURES: Heart normal in size. Normal vasculature. BONES: No acute findings. HARDWARE: None in the chest. OTHER: No other significant finding. IMPRESSION: NO ACUTE RADIOGRAPHIC FINDING IN THE CHEST. TECHNICAL DOCUMENTATION: JOB ID: [id number] [employer]- All Rights Reserved Reading location - IP/workstation name: [email or web address]
[2018-06-09 09:57] LABS: ALANINE AMINOTRANSFERASE 47 U/L (21-72); ALBUMIN 3.7 g/dL (3.5-5.0); ALKALINE PHOSPHATASE 58 U/L (38-126); ANION GAP 9 (5-19); ASPARTATE AMINO TRANSFERASE 23 U/L (17-59); BILIRUBIN,DIRECT 0.3 mg/dL (0.0-0.4); BILIRUBIN,TOTAL 0.5 mg/dL (0.2-1.3); BLOOD UREA NITROGEN 12 mg/dL (7-20); CALCIUM 9.2 mg/dL (8.4-10.2); CARBON DIOXIDE 27 mmol/L (22-30); CHLORIDE 109 mmol/L (98-107); GLUCOSE 101 mg/dL (75-110); POTASSIUM 4.5 mmol/L (3.6-5.0); SODIUM 144.5 mmol/L (137-145); TOTAL PROTEIN 6.1 g/dL (6.3-8.2)
[2018-06-09 09:58] LABS: APPEARANCE,URINE CLEAR; BILIRUBIN,URINE NEGATIVE (NEGATIVE); COLOR,URINE YELLOW; GLUCOSE, URINE NEGATIVE (NEGATIVE); KETONES,URINE NEGATIVE (NEGATIVE); LEUKOCYTE ESTERASE,URINE NEGATIVE (NEGATIVE); NITRITE,URINE NEGATIVE (NEGATIVE); PROTEIN,URINE NEGATIVE (NEGATIVE); URINE SPECIFIC GRAVITY 1.011; UROBILINOGEN,URINE NEGATIVE mg/dL (<2.0)
--- NOTE | 2018-06-09 10:31 | RADIOLOGY REPORT (SQ) ---
EXAM DESCRIPTION: CTA CHEST COMPLETED DATE/TIME: 06/09/2018 10:08 am REASON FOR STUDY: JACLYN MORALES COMPARISON: Chest x-ray done earlier the same day. TECHNIQUE: CT scan of the chest performed using helical scanning technique with dynamic intravenous contrast injection. Images reviewed with lung, soft tissue and bone windows. Reconstructed coronal and sagittal MPR images reviewed. Additional 3 dimensional post-processing performed to develop Maximal Intensity Projection images ([place] P). All images stored on PACS. All CT scanners at this facility use dose modulation, iterative reconstruction, and/or weight based d osing when appropriate to reduce radiation dose to as low as reasonably achievable (ALARA). [facility]: Dose Right [facility]: CareDose [facility]: Dose Right [facility]: Teradose 4D [facility]: Nurix CONTRAST TYPE AND DOSE: contrast/concentration: Isovue 350.00 mg/ml; Total Contrast Delivered: 83.0 ml; Total Saline Delivered: 85.0 ml Contrast bolus adequate for pulmonary arteries and aorta. RENAL FUNCTION: None required. The patient is less than 50 years old. RADIATION DOSE: CT Rad equipment meets quality standard of care and radiation dose reduction techniq ues were employed. CTDIvol: 27.8 - 49.6 mGy. DLP: 1273 mGy-cm. . LIMITATIONS: None. FINDINGS: LUNGS AND PLEURA: No masses, infiltrates, or pneumothorax. No pleural effusions or pleura l calcifications. AORTA AND GREAT VESSELS: No aneurysm. Contrast bolus not optimized for the aorta. HEART: No pericardial effusion. No significant coronary artery calcifications. PULMONARY ARTERIES: There are bilateral pulmonary emboli. There is thrombus in both right main pulmo nary arteries and and upper and lower lobe segmental and subsegmental branches. Clot burden is exten sive. The right ventricle is slightly prominent size. The left atrium is small consistent with decr eased venous return. HILAR AND MEDIASTINAL STRUCTURES: No identified masses or abnormal nodes. HARDWARE: None in the chest. UPPER ABDOMEN: No significant findings. Limited exam. THYROID AND OTHER SOFT TISSUES: No masses. No adenopathy. BONES: No acute or significant finding. 3D MIPS: Confirm above findings. OTHER: No other significant finding. IMPRESSION: Extensive bilateral pulmonary emboli with evidence of right-sided heart strain. COMMENT: Pertinent findings on the imaging study reported as a CRITICAL RESULT to CLAUDIA CASIANO at10:19 on 06/09/2018. Category of Critical Result: Pulmonary embolus Quality ID # [id number]: Final reports with documentation of one or more dose reduction techniques (e.g., Au tomated exposure control, adjustment of the mA and/or kV according to patient size, use of iterative reconstruction technique) TECHNICAL DOCUMENTATION: JOB ID: [id number] [employer]- All Rights Reserved Reading location - IP/workstation name: [email or web address]
[2018-06-09] MEDS ORDERED: ENOXAPARIN SODIUM INJ 120 MG/0.8 ML DISP.SYRIN SUBCUT SCH (11:15)
[2018-06-09] MEDS ORDERED: LORAZEPAM INJ 2 MG/1 ML VIAL IV ONE ×3 (11:40→17:37)
--- NOTE | 2018-06-09 12:50 | EKG REPORT ---
SEVERITY:- ABNORMAL ECG - SINUS RHYTHM LEFT AXIS DEVIATION ABNORMAL T, PROBABLE ISCHEMIA, WIDESPREAD PROLONGED QT INTERVAL : Confirmed by: Paul Shelby MD 09-Jun-2018 12:49:25
[2018-06-09] MEDS ORDERED: NORMAL SALINE 500 ML IV ONE (13:07)
[2018-06-09] MEDS ORDERED: NORMAL SALINE 1000 ML 1,000 ML IV PRN (15:19)
[2018-06-09 17:25] VITALS: BP 134/100
[2018-06-09] MEDS ORDERED: MORPHINE SULFATE 10 MG/ML INJ IV ONE (17:37)
[2018-06-09 17:44] LABS: ANION GAP 8 (5-19); BLOOD UREA NITROGEN 10 mg/dL (7-20); CALCIUM 9.2 mg/dL (8.4-10.2); CARBON DIOXIDE 26 mmol/L (22-30); CHLORIDE 108 mmol/L (98-107); GLUCOSE 83 mg/dL (75-110); POTASSIUM 4.1 mmol/L (3.6-5.0); SODIUM 142.4 mmol/L (137-145)
--- NOTE | 2018-06-10 17:29 | EKG REPORT ---
SEVERITY:- ABNORMAL ECG - SINUS TACHYCARDIA LEFT ANTERIOR FASCICULAR BLOCK NONSPECIFIC T ABNORMALITIES, INFERIOR (SAME) AND ANTERIOR (IMPROVED) LEADS FROM EARLIER EKG. BORDERLINE PROLONGED QT INTERVAL : Confirmed by: Paul Shelby MD 10-Jun-2018 17:28:51
== END 2018-06-09 17:53 | disposition short-term general hospital (02) ==
LOC: ER 08:50
DX: I26.09 Other pulmonary embolism with acute cor pulmonale (principal); R07.9 Chest pain, unspecified; I10 Essential (primary) hypertension; R00.0 Tachycardia, unspecified; F12.90 Cannabis use, unspecified, uncomplicated
CPT/HCPCS: 93005; 96376; 99291; 96372; 96361; 96374; 96375; 36415; 85025; 80048; 80053; 81001; 84484; 83880; 71045; 71275; 93010; J1650; J2270; J2060; J7030; J7040

== ENCOUNTER 2019-01-26 11:02 | Emergency (ER) | payer OTHER ==
--- NOTE | 2019-01-26 11:34 | ER Document Report ---
ED Medical Screen (RME) - General Chief Complaint: Foot Pain Stated Complaint: RIGHT FOOT PAIN Time Seen by Provider: 01/26/19 11:31 Mode of Arrival: Ambulatory Information source: Patient Notes: 38-year-old male presents to ED for right foot pain since yesterday. He states it is swelling red and painful. He states [facility] and told him that he has a family history of gout and they told him they did not think it was gout and gave him a cutter Toradol. 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 He states that then for about 6 months he said his medical history is anxiety and PTSD he does have a service dog with him. I have greeted and performed a rapid initial assessment of this patient. A comprehensive ED assessment and evaluation of the patient, analysis of test results and completion of medical decision making process will be conducted by an additional ED providers. TRAVEL OUTSIDE OF THE [place] IN LAST 30 DAYS: No - Related Data Allergies/Adverse Reactions: No Known Allergies Allergy (Verified 01/26/19 11:03) Past Medical History - Social History Frequency of alcohol use: None Drug Abuse: Marijuana - Past Medical History Cardiac Medical History: Reports: Hx Hypertension Renal/ Medical History: Denies: Hx Peritoneal Dialysis GI Medical History: Reports: Hx Gastroesophageal Reflux Disease, Hx Irritable Bowel Psychiatric Medical History: Reports: Hx Anxiety, Hx Attention Deficit Hyperactivity Disorder, Hx Post Traumatic Stress Disorder Past Surgical History: Reports: Hx Orthopedic Surgery - Spinal fusion Physical Exam - Vital signs Vitals: Temp Pulse Resp BP Pulse Ox 97.7 F 110 H 20 155/112 H 98 01/26/19 11:18 01/26/19 11:18 01/26/19 11:18 01/26/19 11:18 01/26/19 11:18 Course - Vital Signs Vital signs: Temp Pulse Resp BP Pulse Ox 97.7 F 110 H 20 155/112 H 98 01/26/19 11:18 01/26/19 11:18 01/26/19 11:18 01/26/19 11:18 01/26/19 11:18
[2019-01-26 12:06] LABS: ABSOLUTE LYMPHOCYTES (AUTO) 1.5 10^3/uL (0.5-4.7); ABSOLUTE MONOCYTES (AUTO) 0.6 10^3/uL (0.1-1.4); ABSOLUTE NEUT (AUTO) 5.2 10^3/uL (1.7-8.2); APPEARANCE,URINE CLEAR; BASOPHILS % (AUTO) 0.6 % (0-2); BILIRUBIN,URINE NEGATIVE (NEGATIVE); COLOR,URINE YELLOW; EOSINOPHILS % (AUTO) 0.6 % (0-6); GLUCOSE, URINE NEGATIVE (NEGATIVE); HEMATOCRIT 47.8 % (37.9-51.0); HEMOGLOBIN 16.9 g/dL (13.5-17.0); KETONES,URINE NEGATIVE (NEGATIVE); LEUKOCYTE ESTERASE,URINE NEGATIVE (NEGATIVE); LYMPHOCYTES % (AUTO) 20.5 % (13-45); MEAN CORPUSCULAR HGB CONC 35.3 g/dL (32.0-36.0); MEAN CORPUSCULAR VOLUME 91 fl (80-97); MONOCYTES % (AUTO) 7.9 % (3-13); NITRITE,URINE NEGATIVE (NEGATIVE); PLATELET COUNT 199 10^3/uL (150-450); PROTEIN,URINE NEGATIVE (NEGATIVE); RED BLOOD COUNT 5.27 10^6/uL (4.35-5.55); SEGMENTED NEUTROPHILS % (AUTO) 70.4 % (42-78); TOTAL CELLS COUNTED % (AUTO) 100 %; URINE SPECIFIC GRAVITY 1.024; UROBILINOGEN,URINE NEGATIVE mg/dL (<2.0); WHITE BLOOD COUNT 7.4 10^3/uL (4.0-10.5)
--- NOTE | 2019-01-26 12:09 | RADIOLOGY REPORT (SQ) ---
EXAM DESCRIPTION: FOOT RIGHT COMPLETE COMPLETED DATE/TIME: 01/26/2019 11:57 am REASON FOR STUDY: pain and swelling COMPARISON: None. NUMBER OF VIEWS: Three views. TECHNIQUE: AP, lateral and oblique radiographic images acquired of the right foot. LIMITATIONS: None. FINDINGS: MINERALIZATION: Normal. BONES: There is a deformity of the right 1st metatarsal, possibly related to prior bunion correction osteotomy. There is very subtle flattening and sclerosis of the head of the right 2nd metatarsal. JOINTS: Moderate right 1st metatarsophalangeal arthrosis. SOFT TISSUES: Soft tissue swelling about the forefoot. OTHER: No other significant finding. IMPRESSION: 1. There is very subtle flattening and sclerosis of the head of the right 2nd metatarsa l, which can be seen in developing avascular necrosis (Freiberg's disease). MRI may be used to more sensitively evaluate marrow if desired. 2. There is moderate right 1st metatarsophalangeal arthrosis with a deformity of the right 1st metat arsal, possibly related to prior bunion correction osteotomy. Correlate for surgical history. 3. Diffuse soft tissue swelling about the forefoot. 4. No obvious fracture or dislocation of the right foot. TECHNICAL DOCUMENTATION: JOB ID: [id number] [employer]- All Rights Reserved Reading location - IP/workstation name: [email or web address]
[2019-01-26] MEDS ORDERED: OXYCODONE-ACETAMINOPHEN 5-325 MG TABLET PO ONE (12:28)
[2019-01-26 12:29] LABS: ALANINE AMINOTRANSFERASE 80 U/L (21-72); ALBUMIN 4.8 g/dL (3.5-5.0); ALKALINE PHOSPHATASE 63 U/L (38-126); ANION GAP 8 (5-19); ASPARTATE AMINO TRANSFERASE 32 U/L (17-59); BILIRUBIN,DIRECT 0.2 mg/dL (0.0-0.4); BLOOD UREA NITROGEN 11 mg/dL (7-20); CALCIUM 10.2 mg/dL (8.4-10.2); CARBON DIOXIDE 27 mmol/L (22-30); CHLORIDE 104 mmol/L (98-107); GLUCOSE 107 mg/dL (75-110); POTASSIUM 4.3 mmol/L (3.6-5.0); SODIUM 139.3 mmol/L (137-145); TOTAL PROTEIN 7.6 g/dL (6.3-8.2); URIC ACID 7.7 mg/dL (3.5-8.5)
--- NOTE | 2019-01-26 14:31 | RADIOLOGY REPORT (SQ) ---
EXAM DESCRIPTION: MRI RT LOWER EXTREMITY WITHOUT COMPLETED DATE/TIME: 01/26/2019 2:03 pm REASON FOR STUDY: right foot, eval for osteonecrosis COMPARISON: Plain radiograph TECHNIQUE: T1-weighted, T2-weighted, and gradient echo noncontrast multiplanar imaging of the right foot. LIMITATIONS: None. FINDINGS: MARROW SIGNAL: No marrow signal alteration. No occult fracture. No evidence for osteo ne crosis. JOINT EFFUSION: There is a moderate joint effusion of the seconds metatarsal phalangeal joint. PLANTAR FASCIA: Normal as visualized. TARSOMETATARSAL AND TOE ARTICULATIONS: Marked degenerative changes of the 1st metatarsal phalangeal j oint. Otherwise no significant finding. INTERMETATARSAL SPACES AND PLANTAR PLATES: Intact. No soft tissue mass to suggest a neuroma. SOFT TISSUES: Generalized soft tissue swelling along the dorsum of the foot. OTHER: No other significant finding. IMPRESSION: No osteonecrosis. Moderate joint effusion seconds metatarsal phalangeal joint. Degenerative changes of the 1st metatarsal phalangeal joint. TECHNICAL DOCUMENTATION: JOB ID: [id number] [employer]- All Rights Reserved Reading location - IP/workstation name: [email or web address]
--- NOTE | 2019-01-26 14:51 | ER Document Report ---
ED General - General Chief Complaint: Foot Pain Stated Complaint: RIGHT FOOT PAIN Time Seen by Provider: 01/26/19 11:31 Primary Care Provider: [place] [Primary Care Provider] - Follow up as needed Mode of Arrival: Ambulatory TRAVEL OUTSIDE OF THE [place]. IN LAST 30 DAYS: No - HPI Notes: Patient is a 38-year-old gentleman who presents to the emergency department for evaluation of right foot pain and redness. He denies any injury. No penetrating trauma. He states it all started yesterday. He thought it could be gout, so he saw his provider at the [place]. They did not think it was gout. He has had no fevers or chills. No nausea or vomiting. He is taking his medications as prescribed. - Related Data Allergies/Adverse Reactions: No Known Allergies Allergy (Verified 01/26/19 11:03) Past Medical History - General Information source: Patient - Social History Smoking Status: Never Smoker Frequency of alcohol use: None Drug Abuse: Marijuana Family History: Reviewed & Not Pertinent Patient has suicidal ideation: No Patient has homicidal ideation: No - Past Medical History Cardiac Medical History: Reports: Hx Hypertension Pulmonary Medical History: Reports: Other - Pulmonary embolus Renal/ Medical History: Denies: Hx Peritoneal Dialysis GI Medical History: Reports: Hx Gastroesophageal Reflux Disease, Hx Irritable Bowel Psychiatric Medical History: Reports: Hx Anxiety, Hx Attention Deficit Hyperactivity Disorder, Hx Post Traumatic Stress Disorder Past Surgical History: Reports: Hx Orthopedic Surgery - Spinal fusion Review of Systems - Review of Systems Constitutional: No symptoms reported EENT: No symptoms reported Cardiovascular: No symptoms reported Respiratory: No symptoms reported Gastrointestinal: No symptoms reported Genitourinary: No symptoms reported Musculoskeletal: See HPI Skin: No symptoms reported Neurological/Psychological: No symptoms reported Physical Exam - Vital signs Vitals: Temp Pulse Resp BP Pulse Ox 97.7 F 110 H 20 155/112 H 98 01/26/19 11:18 01/26/19 11:18 01/26/19 11:18 01/26/19 11:18 01/26/19 11:18 - Notes Notes: Vital signs reviewed, please refer to chart. Patient is normocephalic, atraumatic. Pupils equal round, reactive to light. Neck is supple without meningismus. Heart is regular rate and rhythm. Lungs are clear to auscultation bilaterally. Abdomen is soft, nontender, normoactive bowel sounds throughout. Extremities without cyanosis, clubbing, edema. Peripheral pulses are equal. Skin is warm and dry. Examination of the right foot yields a moderate amount of edema and erythema localized over the second metatarsophalangeal joint, dorsal a spect. He is not particularly tender over the joint itself. He has some pain with range of motion of the second toe. Dorsalis pedis and posterior tibial pulses are 2+ capillary refill is brisk, sensation is intact. Course - Re-evaluation Re-evalutation: 01/26/19 14:46 Patient presents to the emergency department for evaluation. He had laboratory investigations and imaging as ordered. Plain x-ray was concerning for signs of avascular necrosis. MRI was ordered. It did reveal joint effusion but no signs of necrosis. He has no overt signs of infection in his blood work. I spoke with Dr. Grijalva. We discussed this patient in depth, he states that anti- inflammatories and following seems appropriate. Given the fact this patient is already on blood thinners, we will treat him with prednisone. We will also send him with a small amount of pain medication. He is to follow-[facility] Grijalva. He is to return to the emergency department with worsening or new concerning symptoms. - Vital Signs Vital signs: Temp Pulse Resp BP Pulse Ox 97.7 F 110 H 20 155/112 H 98 01/26/19 11:18 01/26/19 11:18 01/26/19 11:18 01/26/19 11:18 01/26/19 11:18 - Laboratory Result Diagrams: 01/26/19 11:42 01/26/19 11:42 Laboratory results interpreted by me: 01/26/19 11:42 ALT 80 H Discharge - Discharge Clinical Impression: Metatarsophalangeal joint effusion Condition: Stable Disposition: HOME, SELF-CARE Additional Instructions: Take medication as prescribed. Watch for dizziness and drowsiness with Vicodin. Follow-up with [facility], [facility] or with our on-call orthopedist, listed below. Return to the emergency department with worsening or new concerning symptoms. Referrals: [facility] [Primary Care Provider] - Follow up as needed AFRICA GRIJALVA MD [ACTIVE STAFF] - Follow up as needed
[2019-01-26 15:07] VITALS: BP 150/98
== END 2019-01-26 15:06 | disposition home or self-care (01) ==
LOC: ER 11:02
DX: M25.474 Effusion, right foot (principal); M79.671 Pain in right foot; L53.9 Erythematous condition, unspecified; F12.10 Cannabis abuse, uncomplicated; I10 Essential (primary) hypertension; Z86.711 Personal history of pulmonary embolism; Z79.01 Long term (current) use of anticoagulants
CPT/HCPCS: 36415; 80053; 81001; 84550; 85025; 99284

== ENCOUNTER 2019-04-18 08:20 | Emergency (ER) | payer OTHER ==
[2019-04-18 09:31] LABS: ABSOLUTE LYMPHOCYTES (AUTO) 0.9 10^3/uL (0.5-4.7); ABSOLUTE MONOCYTES (AUTO) 0.9 10^3/uL (0.1-1.4); ABSOLUTE NEUT (AUTO) 7.9 10^3/uL (1.7-8.2); BASOPHILS % (AUTO) 0.3 % (0-2); EOSINOPHILS % (AUTO) 0.5 % (0-6); HEMATOCRIT 44.8 % (37.9-51.0); HEMOGLOBIN 15.7 g/dL (13.5-17.0); LYMPHOCYTES % (AUTO) 9.2 % (13-45); MEAN CORPUSCULAR HEMOGLOBIN 32.2 pg (27.0-33.4); MEAN CORPUSCULAR HGB CONC 34.9 g/dL (32.0-36.0); MEAN CORPUSCULAR VOLUME 92 fl (80-97); MONOCYTES % (AUTO) 9.1 % (3-13); PLATELET COUNT 162 10^3/uL (150-450); RED BLOOD COUNT 4.87 10^6/uL (4.35-5.55); SEGMENTED NEUTROPHILS % (AUTO) 80.9 % (42-78); TOTAL CELLS COUNTED % (AUTO) 100 %; WHITE BLOOD COUNT 9.7 10^3/uL (4.0-10.5)
[2019-04-18 09:54] LABS: ALANINE AMINOTRANSFERASE 47 U/L (21-72); ALBUMIN 4.6 g/dL (3.5-5.0); ALKALINE PHOSPHATASE 50 U/L (38-126); ANION GAP 9 (5-19); ASPARTATE AMINO TRANSFERASE 28 U/L (17-59); BILIRUBIN,DIRECT 0.4 mg/dL (0.0-0.4); BILIRUBIN,TOTAL 1.1 mg/dL (0.2-1.3); BLOOD UREA NITROGEN 12 mg/dL (7-20); CALCIUM 9.6 mg/dL (8.4-10.2); CARBON DIOXIDE 26 mmol/L (22-30); CHLORIDE 105 mmol/L (98-107); GLUCOSE 95 mg/dL (75-110); LIPASE 53.8 U/L (23-300); POTASSIUM 4.7 mmol/L (3.6-5.0); TOTAL PROTEIN 7.1 g/dL (6.3-8.2)
[2019-04-18 10:00] LABS: APPEARANCE,URINE CLEAR; BILIRUBIN,URINE NEGATIVE (NEGATIVE); COLOR,URINE YELLOW; GLUCOSE, URINE NEGATIVE (NEGATIVE); KETONES,URINE 20 mg/dL (NEGATIVE); LEUKOCYTE ESTERASE,URINE NEGATIVE (NEGATIVE); NITRITE,URINE NEGATIVE (NEGATIVE); PROTEIN,URINE NEGATIVE (NEGATIVE); UROBILINOGEN,URINE NEGATIVE mg/dL (<2.0)
[2019-04-18] MEDS ORDERED: FENTANYL CITRATE INJ/PF 100 MCG/2 ML AMPUL IV ONE (10:21)
[2019-04-18] MEDS ORDERED: AMOXICILLIN TR/POT CLAVULANATE 500-125 MG TAB PO ONE (10:22)
[2019-04-18] MEDS ORDERED: AMOXICILLIN TRIHYD 250 MG CAPSULE PO ONE (10:22)
[2019-04-18] MEDS ORDERED: PROMETHAZINE HCL INJ 25 MG/1 ML VIAL IV ONE (10:22)
--- NOTE | 2019-04-18 10:29 | ER Document Report ---
ED GI/ - General Chief Complaint: Abdominal Pain Stated Complaint: ABDOMINAL PAIN Time Seen by Provider: 04/18/19 08:54 Primary Care Provider: CARMEN,CORAL [Primary Care Provider] - Follow up as needed Notes: Patient is a 38-year-old male presents to the emergency department for left lower abdominal pain. Patient states he has had left lower abdominal pain for the last 2 days. States he is also been nauseated but is denying any vomiting. States he had over 25 loose stools in the last 2 days. States last stools were mucousy and "streaked with blood." Patient's denying any fevers. Patient states he does have a history of diverticulitis. Denies dysuria, testicular pain, swelling, erythema. Past medical history: Diverticulitis, hypertension, pulmonary embolus Medications: Omeprazole, losartan, Xarelto, Ativan Allergies: Zofran TRAVEL OUTSIDE OF THE [place] IN LAST 30 DAYS: No - Related Data Allergies/Adverse Reactions: No Known Allergies Allergy (Verified 04/18/19 08:21) Past Medical History - General Information source: Patient - Social History Smoking Status: Never Smoker Chew tobacco use (# tins/day): No Frequency of alcohol use: None Drug Abuse: None Family History: Reviewed & Not Pertinent Patient has suicidal ideation: No Patient has homicidal ideation: No - Past Medical History Cardiac Medical History: Reports: Hx Hypertension Renal/ Medical History: Denies: Hx Peritoneal Dialysis GI Medical History: Reports: Hx Gastroesophageal Reflux Disease, Hx Irritable Bowel Psychiatric Medical History: Reports: Hx Anxiety, Hx Attention Deficit Hyperact ivity Disorder, Hx Post Traumatic Stress Disorder Past Surgical History: Reports: Hx Orthopedic Surgery - Spinal fusion Review of Systems - Review of Systems Constitutional: denies: Fever EENT: No symptoms reported Cardiovascular: No symptoms reported Respiratory: No symptoms reported Gastrointestinal: See HPI Genitourinary: See HPI Male Genitourinary: See HPI Musculoskeletal: No symptoms reported Skin: No symptoms reported Hematologic/Lymphatic: See HPI Neurological/Psychological: No symptoms reported Physical Exam - Vital signs Vitals: Temp Pulse Resp BP Pulse Ox 97.9 F 96 20 149/103 H 99 04/18/19 08:24 04/18/19 08:24 04/18/19 08:24 04/18/19 08:24 04/18/19 08:24 - Notes Notes: GENERAL: Alert, interacts well. No acute distress. HEAD: Normocephalic, atraumatic. EYES: Pupils equal, round, and reactive to light. Extraocular movements intact. ENT: Oral mucosa moist, tongue midline. NECK: Full range of motion. Supple. Trachea midline. LUNGS: Clear to auscultation bilaterally, no wheezes, rales, or rhonchi. No re spiratory distress. HEART: Regular rate and rhythm. No murmur ABDOMEN: Soft, no McBurney's point tenderness, no Torrez sign noted. Generalized tenderness left lower quadrant. Non-distended. Bowel sounds present in all 4 quadrants. EXTREMITIES: Moves all 4 extremities spontaneously. No edema, normal radial and dorsalis pedis pulses bilaterally. No cyanosis. BACK: no cervical, thoracic, lumbar midline tenderness. No saddle anesthesia, normal distal neurovascular exam. No CVA tenderness noted bilaterally NEUROLOGICAL: Alert and oriented x3. Normal speech. cranial nerves II through XII grossly intact PSYCH: Normal affect, normal mood. SKIN: Warm, dry, normal turgor. No rashes or lesions noted. genitalia: Eleanor Osman RN circumcised penis no active discharge at the meatus, bilateral testicles descended nonerythematous nonswollen. Rectal exam reveals no signs of internal or external hemorrhoids, no anal fissures. No melena noted, no bright red blood noted, brown stool noted. Guai ac negative. Course - Re-evaluation Re-evalutation: 04/18/19 10:29 Laboratory 04/18/19 04/18/19 04/18/19 09:20 09:20 09:30 WBC 9.7 RBC 4.87 Hgb 15.7 Hct 44.8 MCV 92 MCH 32.2 MCHC 34.9 RDW 13.0 Plt Count 162 Seg Neutrophils % 80.9 H Lymphocytes % 9.2 L Monocytes % 9.1 Eosinophils % 0.5 Basophils % 0.3 Absolute Neutrophils 7.9 Absolute Lymphocytes 0.9 Absolute Monocytes 0.9 Absolute Eosinophils 0.0 Absolute Basophils 0.0 Sodium 140.0 Potassium 4.7 Chloride 105 Carbon Dioxide 26 Anion Gap 9 BUN 12 Creatinine 0.73 Est GFR ( Amer) > 60 Est GFR (Non-Af Amer) > 60 Glucose 95 Calcium 9.6 Total Bilirubin 1.1 Direct Bilirubin 0.4 Neonat Total Bilirubin Not Reportable Neonat Direct Bilirubin Not Reportable Neonat Indirect Bili Not Reportable AST 28 ALT 47 Alkaline Phosphatase 50 Total Protein 7.1 Albumin 4.6 Lipase 53.8 Urine Color YELLOW Urine Appearance CLEAR Urine pH 5.0 Ur Specific [place] 1.020 Urine Protein NEGATIVE Urine Glucose (UA) NEGATIVE Urine Ketones 20 H Urine Blood NEGATIVE Urine Nitrite NEGATIVE Urine Bilirubin NEGATIVE Urine Urobilinogen NEGATIVE Ur Leukocyte Esterase NEGATIVE Urine WBC (Auto) 1 Urine RBC (Auto) 1 Squamous Epi Cells Auto <1 Urine Mucus (Auto) OCC Urine Ascorbic Acid NEGATIVE POC Stool Occult Blood 04/18/19 10:05 WBC RBC Hgb Hct MCV MCH MCHC RDW Plt Count Seg Neutrophils % Lymphocytes % Monocytes % Eosinophils % Basophils % Absolute Neutrophils Absolute Lymphocytes Absolute Monocytes Absolute Eosinophils Absolute Basophils Sodium Potassium Chloride Carbon Dioxide Anion Gap BUN Creatinine Est GFR ( Amer) Est GFR (Non-Af Amer) Glucose Calcium Total Bilirubin Direct Bilirubin Neonat Total Bilirubin Neonat Direct Bilirubin Neonat Indirect Bili AST ALT Alkaline Phosphatase Total Protein Albumin Lipase Urine Color Urine Appearance Urine pH Ur Specific [place] Urine Protein Urine Glucose (UA) Urine Ketones Urine Blood Urine Nitrite Urine Bilirubin Urine Urobilinogen Ur Leukocyte Esterase Urine WBC (Auto) Urine RBC (Auto) Squamous Epi Cells Auto Urine Mucus (Auto) Urine Ascorbic Acid POC Stool Occult Blood NEGATIVE I discussed with patient's recommendations from [facility] to not do a CT at this time based on patient's white blood cell count. I discussed treatment of diverticulitis at length with patient at bedside. I have also discussed close return precautions. Patient voices understanding, stable for discharge. - Vital Signs Vital signs: Temp Pulse Resp BP Pulse Ox 97.9 F 96 20 149/103 H 99 04/18/19 08:24 04/18/19 08:24 04/18/19 08:24 04/18/19 08:24 04/18/19 08:24 - Laboratory Result Diagrams: 04/18/19 09:20 04/18/19 09:20 Laboratory results interpreted by me: 04/18/19 04/18/19 09:20 09:30 Seg Neutrophils % 80.9 H Lymphocytes % 9.2 L Urine Ketones 20 H Discharge - Discharge Clinical Impression: Diverticulitis Condition: Stable Disposition: HOME, SELF-CARE Instructions: Diverticulitis ([facility]) Additional Instructions: you were seen today for focal pain in your left lower quadrant. Your labs, exam, and imaging suggest a diagnosis of diverticulitis. This is an inflammation of a part of your colon. You are being started on antibiotics to treat this infection and inflammation. Please take all of them as directed and complete them even if your symptoms resolve. Please follow-up with your primary care physician within the next 48 hours. Return to the emergency department im mediately if you develop worsening pain, persistent vomiting, began having bloody stools, develop a fever of greater than 100.4F, or have any other symptoms that are concerning to you. Prescriptions: Amox Tr/Potassium Clavulanate [Augmentin 875-125 Tablet] 1 tab PO BID 10 Days tablet Oxycodone HCl/Acetaminophen [Percocet 5-325 mg Tablet] 1 - 2 tab PO Q4H PRN #15 tablet PRN Reason: Promethazine HCl [Phenergan 25 mg Tablet] 1 tab PO Q6H PRN #10 tablet PRN Reason: Forms: Return to Work [facility]errals[facility] [[facility]] - Follow up as needed
[2019-04-18 11:15] VITALS: BP 145/98
== END 2019-04-18 11:14 | disposition home or self-care (01) ==
LOC: ER 08:20
DX: K57.92 Diverticulitis of intestine, part unspecified, without perforation or abscess without bleeding (principal); R10.32 Left lower quadrant pain; I10 Essential (primary) hypertension; Z86.711 Personal history of pulmonary embolism
CPT/HCPCS: 99284; 96374; 96375; 36415; 83690; 85025; 80053; 81001; J3490; J3010; J2550

== ENCOUNTER 2019-04-23 05:24 | Emergency (ER) | payer OTHER ==
--- NOTE | 2019-04-23 08:27 | ER Document Report ---
HPI - HPI Patient complains to provider of: abdominal pain, nausea Time Seen by Provider: 04/23/19 08:26 Onset/Duration: Gradual, Constant Quality of pain: Achy, Cramping Severity: Moderate Pain Level: 3 Context: 38 Yr old male pt with the listed pmh, here for continued and worsening llq and lower abdominal pain for about 7 days. pain is most severe in llq. seen here 5 days ago for the same and had unremarkable labs and given hx and pe was diagnosed with diverticulitis without any imaging and dc'd on augmentin. he has been compliant with this but states the pain has continued so he returned for a reevaluation. still having some nausea but no vomiting now. low grade fevers also but states the diarrhea is improving. no trauma or injury. no hx of diabetes or asthma. no uti sx. no testicular pain/swelling, penile dc/rash/lesions, or concerns for stds. denies swelling or hx of hernias. no abd surgeries unless otherwise noted. no other recent abx or steroids. hasn't taken anything else for sx. slight decreased po intake. no hx of gerd, gb dz, pancreatitis, gi bleed, ulcers, ibs, or crohns. hx of this before as he carries a hx of diverticulitis but has never required surgery for it. no sick contacts. no uri sx. no rash. no excessive nsaid use or etoh. no other recent illness. pain not worse with eating. denies changes in color of stool. no other assoc iated sx. states pain isn't controlled with otc meds. Past Medical History - General Information source: Patient - Social History Smoking Status: Unknown if Ever Smoked Frequency of alcohol use: None Drug Abuse: Marijuana - occasional. denies hx of cannabis hyperemesis Family History: Reviewed & Not Pertinent Patient has suicidal ideation: No Patient has homicidal ideation: No - Past Medical History Cardiac Medical History: Reports: Hx Hypertension Pulmonary Medical History: Reports: Other - Pulm Embolism hx Neurological Medical History: Denies: Hx Migraine, Hx Seizures Endocrine Medical History: Denies: Hx Diabetes Mellitus Type 1, Hx Diabetes Me llitus Type 2, Hx Hyperthyroidism, Hx Hypothyroidism Renal/ Medical History: Denies: Hx Peritoneal Dialysis Malignancy Medical History: Reports None GI Medical History: Reports: Hx Diverticulitis, Hx Gastroesophageal Reflux Disease, Hx Irritable Bowel Psychiatric Medical History: Reports: Hx Anxiety, Hx Attention Deficit Hyperactivity Disorder, Hx Post Traumatic Stress Disorder Past Surgical History: Reports: Hx Orthopedic Surgery - Spinal fusion - Immunizations Immunizations up to date: Yes Vertical Provider Document - CONSTITUTIONAL Notes: >>>> PHYSICAL_EXAM: GENERAL_APPEARANCE: well_nourished, alert, cooperative, no_acute_distress, mild obvious_discomfort. Pleasant, middle aged male, smiling, speaking in full sentences, easily sitting up, in no sign of resp distress, nontoxic, appears uncomfortable, speaking in full sentences VITALS: reviewed, see vital signs table. HEAD: normocephalic. atraumatic. no kim signs. no raccoon eyes. EYES: PERRL, EOMI, (-)scleral icterus. NOSE: no_nasal_discharge. MOUTH: (-)decreased moisture. THROAT: no_tonsilar_inflammation/hypertrophy/exudate. no lymphadenopathy NECK: supple, no_neck_tenderness, full rom. full strength. no meningeal signs. BACK: no_back_tenderness. CHEST_WALL: no_chest_tenderness. LUNGS: no_wheezing, (-)accessory muscle use, good air exchange bilateral. HEART: normal_rate, normal_rhythm,, ABDOMEN: normal_BS, soft, abdomen-diffuse, mildly ttp llq and suprapubicly, (- )guarding, (-)rebound, no distension or peritoneal signs. neg murphys. neg mcburneys. neg heel strike. neg obturator. neg psoas. neg rovsign. no cva tenderness GENITALS: deferred by pt RECTAL: deferred EXTREMITIES: strength 5/5 in all_extremities, good pulses in all_extremities, no_edema, no_swelling\tenderness. full rom. normal gait. brisk cap refill. good hand apparatus lineman. SKIN: warm, dry, good_color, no rash. no grossly visible overlying skin changes to suggest trauma unless otherwise noted. NEURO: motor_intact, sensory_intact. cranial nerves 2-12 intact, cerebellar fxn intact MENTAL_STATUS: normal_affect, speech_clear, oriented_X_3, responds_appropriately to questions. - INFECTION CONTROL TRAVEL OUTSIDE OF THE [place] IN LAST 30 DAYS: No Course - Re-evaluation Re-evalutation: 04/23/19 10:58 pt here for llq and lower abd pain worsening over the last week with some na usea. labs unremarkable other than a white count of 10 with a left shift. he responded well to meds here and was pain and nausea controlled. tolerating po. serial abd exams remain benign. given this was his second visit in less than a week here for this and he hasn't had a recent ct scan i did get a ct abd/pelv with iv contrast and this showed sigmoid diverticulitis but was otherwise neg for anything acute per rad and reviewed by myself. pt informed of his findings. he has already been on 5/10 days of augmentin. he is out of pain and nausea meds. he states zofran makes him vomit and he can only take phenergan. secondary to his hx and second visit for this, i did discuss the case with ed attending dr. carol morse, who advised to add flagyl to the regimen and if he was pain and nausea controlled he could go home if he could tolerate po. he was po challenged and passed and pain controlled as well. he felt much better and is requesting to go home. will also dc in addition to the flagyl, phenergan and a few vicodin. gave medication precautions. f/u with pcp/gi in 1-2 days. return for any wors ening sx. pt understands and agrees to plan. vss. serial abd exams cont to remain benign. nontoxic. well appearibg. satting well on ra. appears clinically hydrated On reexam, pt improved with tx listed. remained stable. nontoxic. well appearing. pain controlled. tolerating po. requesting to go home. serial abd exams remain benign case discussed with ER Attending, Dr. Carol Morse, who directed and agrees with plan of care and advised no further workup indicated at this time and pt is stable for dc home with close f/u with pcp/specialist. Documentation achieved through voice recording which my lead to some occasional accidental typographical errors. Extensive efforts have been made to proof read documentation to make sure these are the least as possible. [place] [employer] database reviewed and he got a few percocet here 5 days ago but no other scripts for narcotics in the last 2yrs. Category Date Time Status NPO (ED) NOW Care 04/23/19 08:[address] ABD/PELVIS WITH IV ONLY [CT] Stat Exams 04/23/19 09:31 Completed CBC WITH DIFF [HEME] Stat Lab 04/23/19 08:40 Completed COMPREHENSIVE METABOLIC PANEL [CHEM] Stat Lab 04/23/19 08:40 Completed LIPASE [CHEM] Stat Lab 04/23/19 08:40 Completed URINALYSIS [URIN] Stat Lab 04/23/19 10:50 Completed Morphine Sulfate [Morphine 10 mg/ml Inj] Med 04/23/19 08:48 Discontinued 4 mg IV NOW ONE Normal Saline 1000 ml [NaCl 0.9% 1000 ml IV Soln] 1,000 Med 04/23/19 08:49 Discontinued ml IV BOLUS Ondansetron HCl/Pf [Zofran Inj/Pf 4 mg/2 ml Sdv] Med 04/23/19 08:49 Discontinued 4 mg IV NOW ONE Oxycodone HCl/Acetaminophen [Percocet 5-325 mg Tablet] Med 04/23/19 10:56 Discontinued 2 tab PO NOW ONE Promethazine HCl [Phenergan Inj 25 mg/1 ml Vial] Med 04/23/19 10:55 Discontinued 25 mg IM STAT ONE 05/06/19 04:43 - Vital Signs Vital signs: Temp Pulse Resp BP Pulse Ox 98.1 F 86 18 142/103 H 99 04/23/19 05:44 04/23/19 05:44 04/23/19 05:44 04/23/19 05:44 04/23/19 05:44 Temp Pulse Resp BP Pulse Ox 04/23/19 11:42 83 20 130/78 H 99 04/23/19 05:44 98.1 F 86 18 142/103 H 99 - Laboratory Result Diagrams: 04/23/19 08:40 04/23/19 08:40 Laboratory results interpreted by me: 04/23/19 10:59 Labs- Entire Visit 04/23/19 04/23/19 04/23/19 08:40 08:40 10:50 WBC 10.2 RBC 4.67 Hgb 15.0 Hct 42.5 MCV 91 MCH 32.3 MCHC 35.4 RDW 12.8 Plt Count 188 Seg Neutrophils % 85.1 H Lymphocytes % 6.8 L Monocytes % 7.0 Eosinophils % 0.8 Basophils % 0.3 Absolute Neutrophils 8.7 H Absolute Lymphocytes 0.7 Absolute Monocytes 0.7 Absolute Eosinophils 0.1 Absolute Basophils 0.0 Sodium 140.3 Potassium 4.4 Chloride 102 Carbon Dioxide 30 Anion Gap 8 BUN 7 Creatinine 0.77 Est GFR ( Amer) > 60 Est GFR (Non-Af Amer) > 60 Glucose 95 Calcium 9.5 Total Bilirubin 0.7 Direct Bilirubin 0.2 Neonat Total Bilirubin Not Reportable Neonat Direct Bilirubin Not Reportable Neonat Indirect Bili Not Reportable AST 22 ALT 57 Alkaline Phosphatase 75 Total Protein 6.7 Albumin 4.4 Lipase 43.2 Urine Color STRAW Urine Appearance CLEAR Urine pH 6.0 Ur Specific [place] 1.017 Urine Protein NEGATIVE Urine Glucose (UA) NEGATIVE Urine Ketones TRACE H Urine Blood NEGATIVE Urine Nitrite NEGATIVE Urine Bilirubin NEGATIVE Urine Urobilinogen NEGATIVE Ur Leukocyte Esterase NEGATIVE Urine WBC (Auto) 1 Urine RBC (Auto) 0 Urine Ascorbic Acid NEGATIVE - Diagnostic Test Radiology reviewed: Image reviewed, Reports reviewed Radiology results interpreted by me: 04/23/19 10:59 Abdomen/Pelvis CT 04/23/19 09:31 IMPRESSION: Sigmoid diverticulitis. Discharge - Discharge Clinical Impression: Sigmoid diverticulitis Condition: Good Disposition: HOME, SELF-CARE Instructions: Diverticulitis ([facility]) Additional Instructions: Follow-up with PCP/GI 1 to 2 days. Return for any worsening symptoms. Finish the Augmentin. Continue to take the Phenergan as needed for any nausea. [place] diet. Take the Flagyl to completion. Drink plenty of fluids. do not work, drive, operate machinery, or take tylenol with the vicodin. Prescriptions: Hydrocodone/Acetaminophen [Gravel Switch 5-325 mg Tablet] 1 tab PO Q4 PRN #14 tablet PRN Reason: For Pain Metronidazole [Flagyl 500 mg Tablet] 500 mg PO TID #30 tablet Promethazine HCl [Phenergan 25 mg Tablet] 25 mg PO TID PRN #20 tablet PRN Reason: For Nausea/Vomiting [facility]errals: [facility] [[facility]] - Follow up as needed
[2019-04-23] MEDS ORDERED: MORPHINE SULFATE 10 MG/ML INJ IV ONE (08:48)
[2019-04-23] MEDS ORDERED: ONDANSETRON HCL INJ/PF 4 MG/2 ML SDV IV ONE (08:49)
[2019-04-23] MEDS ORDERED: NORMAL SALINE 1000 ML 1,000 ML IV ONE (08:49)
[2019-04-23 09:00] LABS: ABSOLUTE EOSINOPHILS # (AUTO) 0.1 10^3/uL (0.0-0.6); ABSOLUTE LYMPHOCYTES (AUTO) 0.7 10^3/uL (0.5-4.7); ABSOLUTE MONOCYTES (AUTO) 0.7 10^3/uL (0.1-1.4); ABSOLUTE NEUT (AUTO) 8.7 10^3/uL (1.7-8.2); BASOPHILS % (AUTO) 0.3 % (0-2); EOSINOPHILS % (AUTO) 0.8 % (0-6); HEMATOCRIT 42.5 % (37.9-51.0); LYMPHOCYTES % (AUTO) 6.8 % (13-45); MEAN CORPUSCULAR HEMOGLOBIN 32.3 pg (27.0-33.4); MEAN CORPUSCULAR HGB CONC 35.4 g/dL (32.0-36.0); MEAN CORPUSCULAR VOLUME 91 fl (80-97); PLATELET COUNT 188 10^3/uL (150-450); RED BLOOD COUNT 4.67 10^6/uL (4.35-5.55); RED CELL DISTRIBUTION WIDTH 12.8 % (11.5-14.0); SEGMENTED NEUTROPHILS % (AUTO) 85.1 % (42-78); TOTAL CELLS COUNTED % (AUTO) 100 %; WHITE BLOOD COUNT 10.2 10^3/uL (4.0-10.5)
[2019-04-23 09:24] LABS: ALANINE AMINOTRANSFERASE 57 U/L (21-72); ALBUMIN 4.4 g/dL (3.5-5.0); ALKALINE PHOSPHATASE 75 U/L (38-126); ANION GAP 8 (5-19); ASPARTATE AMINO TRANSFERASE 22 U/L (17-59); BILIRUBIN,DIRECT 0.2 mg/dL (0.0-0.4); BILIRUBIN,TOTAL 0.7 mg/dL (0.2-1.3); BLOOD UREA NITROGEN 7 mg/dL (7-20); CALCIUM 9.5 mg/dL (8.4-10.2); CARBON DIOXIDE 30 mmol/L (22-30); CHLORIDE 102 mmol/L (98-107); GLUCOSE 95 mg/dL (75-110); POTASSIUM 4.4 mmol/L (3.6-5.0); TOTAL PROTEIN 6.7 g/dL (6.3-8.2)
--- NOTE | 2019-04-23 10:40 | RADIOLOGY REPORT (SQ) ---
EXAM DESCRIPTION: CT ABD/PELVIS WITH IV ONLY COMPLETED DATE/TIME: 04/23/2019 10:22 am REASON FOR STUDY: suprapubic, llq, and rlq abd pain, n/v divertic hx COMPARISON: 11/01/2017 TECHNIQUE: CT scan of the abdomen and pelvis performed using helical scanning technique with dynamic intravenous contrast injection. No oral contrast. Images reviewed with lung, soft tissue, and bone windows. Reconstructed coronal and sagittal MPR images reviewed. Delayed images for evaluation of the urinary system also acquired. All images stored on PACS. All CT scanners at this facility use dose modulation, iterative reconstruction, and/or weight based d osing when appropriate to reduce radiation dose to as low as reasonably achievable (ALARA). [facility]: Dose Right [facility]: CareDose [facility]: Dose Right [facility]: Teradose 4D [facility]: PulseOn CONTRAST TYPE AND DOSE: contrast/concentration: Isovue 350.00 mg/ml; Total Contrast Delivered: 100.0 ml; Total Saline Delivered: 72.0 ml RENAL FUNCTION: GFR > 60. RADIATION DOSE: CT Rad equipment meets quality standard of care and radiation dose reduction techniq ues were employed. CTDIvol: 18.6 - 20.2 mGy. DLP: 2303 mGy-cm.. LIMITATIONS: None. FINDINGS: LOWER CHEST: No significant findings. No nodules or infiltrates. LIVER: Normal size. No masses. No dilated ducts. SPLEEN: Normal size. No focal lesions. PANCREAS: No masses. No significant calcifications. No adjacent inflammation or peripancreatic fluid collections. Pancreatic duct not dilated. GALLBLADDER: No identified stones by CT criteria. No inflammatory changes to suggest cholecystitis. ADRENAL GLANDS: No significant masses or asymmetry. RIGHT KIDNEY AND URETER: No solid masses. No significant calcifications. No hydronephrosis or hyd roureter. LEFT KIDNEY AND URETER: No solid masses. No significant calcifications. No hydronephrosis or hydr oureter. AORTA AND VESSELS: No aneurysm. No dissection. Renal arteries, SMA, celiac without stenosis. RETROPERITONEUM: No retroperitoneal adenopathy, hemorrhage or masses. BOWEL AND PERITONEAL CAVITY: Inflamed sigmoid colon consistent with diverticulitis. No organized flu id collection. No ascites or free air. APPENDIX: Normal. PELVIS: No mass. No free fluid. Normal bladder. ABDOMINAL WALL: No masses. No hernias. BONES: No significant or acute findings. OTHER: No other significant finding. IMPRESSION: Sigmoid diverticulitis. TECHNICAL DOCUMENTATION: JOB ID: [id number] Quality ID # [id number]: Final reports with documentation of one or more dose reduction techniques (e.g., Au tomated exposure control, adjustment of the mA and/or kV according to patient size, use of iterative reconstruction technique) 2010 [email or web address]- All Rights Reserved Reading location - IP/workstation name: [email or web address]
[2019-04-23] MEDS ORDERED: PROMETHAZINE HCL INJ 25 MG/1 ML VIAL IM ONE (10:55)
[2019-04-23] MEDS ORDERED: OXYCODONE-ACETAMINOPHEN 5-325 MG TABLET PO ONE (10:56)
[2019-04-23 11:06] LABS: APPEARANCE,URINE CLEAR; BILIRUBIN,URINE NEGATIVE (NEGATIVE); COLOR,URINE STRAW; GLUCOSE, URINE NEGATIVE (NEGATIVE); KETONES,URINE TRACE mg/dL (NEGATIVE); LEUKOCYTE ESTERASE,URINE NEGATIVE (NEGATIVE); NITRITE,URINE NEGATIVE (NEGATIVE); PROTEIN,URINE NEGATIVE (NEGATIVE); URINE SPECIFIC GRAVITY 1.017; UROBILINOGEN,URINE NEGATIVE mg/dL (<2.0)
[2019-04-23 11:43] VITALS: BP 130/78
== END 2019-04-23 11:42 | disposition home or self-care (01) ==
LOC: ER 05:24
DX: K57.32 Diverticulitis of large intestine without perforation or abscess without bleeding (principal); R10.32 Left lower quadrant pain; R11.0 Nausea; F12.10 Cannabis abuse, uncomplicated; I10 Essential (primary) hypertension
CPT/HCPCS: 99284; 96361; 96374; 96375; 36415; 83690; 85025; 80053; 81001; 74177; J2270; J2550; J7030

== ENCOUNTER 2019-06-21 11:39 | Emergency (ER) | payer OTHER ==
--- NOTE | 2019-06-21 12:13 | ER Document Report ---
ED Medical Screen (RME) - General Chief Complaint: Chest Pain Stated Complaint: CHEST TIGHTNESS Time Seen by Provider: 06/21/19 12:11 Primary Care Provider: CARMEN,CORAL [Primary Care Provider] - Follow up as needed Mode of Arrival: Wheelchair Information source: Parent Notes: 39-year-old male presented to ED for complaint of left-sided chest pain pressure numbness to the left arm. He was seen for colonoscopy yesterday he does have a history of a pulmonary emboli a year ago he states the first he thought it was a anxiety and tach so he took some Ativan but it is not getting better. Patient is alert and oriented respirations regular and unlabored at this time. He states he may have taken his blood pressure twice this morning but his blood pressure still, high. Smokes marijuana states he no longer smokes cigarettes or if does alcohol. I have greeted and performed a rapid initial assessment of this patient. A comprehensive ED assessment and evaluation of the patient, analysis of test results and completion of medical decision making process will be conducted by an additional ED providers. TRAVEL OUTSIDE OF THE [place] IN LAST 30 DAYS: No - Related Data Allergies/Adverse Reactions: No Known Allergies Allergy (Verified 06/21/19 11:42) Past Medical History - Past Medical History Cardiac Medical History: Reports: Hx Hypercholesterolemia, Hx Hypertension Neurological Medical History: Denies: Hx Migraine, Hx Seizures Endocrine Medical History: Denies: Hx Diabetes Mellitus Type 1, Hx Diabetes Mellitus Type 2, Hx Hyperthyroidism, Hx Hypothyroidism Renal/ Medical History: Denies: Hx Peritoneal Dialysis GI Medical History: Reports: Hx Diverticulitis, Hx Gastroesophageal Reflux Disease, Hx Irritable Bowel Psychiatric Medical History: Reports: Hx Anxiety, Hx Attention Deficit Hyperactivity Disorder, Hx Post Traumatic Stress Disorder Past Surgical History: Reports: Hx Orthopedic Surgery - Spinal fusion - Immunizations Immunizations up to date: Yes Physical Exam - Vital signs Vitals: Temp Pulse Resp BP Pulse Ox 98.5 F 101 H 18 162/106 H 100 06/21/19 11:50 06/21/19 11:50 06/21/19 11:50 06/21/19 11:50 06/21/19 11:50 Course - Vital Signs Vital signs: Temp Pulse Resp BP Pulse Ox 98.5 F 101 H 18 162/106 H 100 06/21/19 11:50 06/21/19 11:50 06/21/19 11:50 06/21/19 11:50 06/21/19 11:50 Doctor's Discharge - Discharge [facility]errals: [facility] [[facility]] - Follow up as needed
[2019-06-21] MEDS ORDERED: ASPIRIN 81 MG TABLET, CHEWABLE PO ONE (12:15)
[2019-06-21 12:37] LABS: ABSOLUTE MONOCYTES (AUTO) 0.3 10^3/uL (0.1-1.4); ABSOLUTE NEUT (AUTO) 6.2 10^3/uL (1.7-8.2); BASOPHILS % (AUTO) 0.4 % (0-2); EOSINOPHILS % (AUTO) 0.2 % (0-6); HEMATOCRIT 47.2 % (37.9-51.0); HEMOGLOBIN 16.5 g/dL (13.5-17.0); LYMPHOCYTES % (AUTO) 13.3 % (13-45); MEAN CORPUSCULAR HEMOGLOBIN 31.9 pg (27.0-33.4); MEAN CORPUSCULAR VOLUME 91 fl (80-97); MONOCYTES % (AUTO) 4.5 % (3-13); PLATELET COUNT 189 10^3/uL (150-450); RED BLOOD COUNT 5.18 10^6/uL (4.35-5.55); RED CELL DISTRIBUTION WIDTH 13.1 % (11.5-14.0); SEGMENTED NEUTROPHILS % (AUTO) 81.6 % (42-78); TOTAL CELLS COUNTED % (AUTO) 100 %; WHITE BLOOD COUNT 7.6 10^3/uL (4.0-10.5)
[2019-06-21 12:41] LABS: INTERNATIONAL RATION (INR) 1.16; PARTIAL THROMBOPLASTIN TIME 30.3 SEC (23.5-35.8); PROTHROMBIN TIME 14.9 SEC (11.4-15.4)
[2019-06-21 12:55] LABS: ALKALINE PHOSPHATASE 55 U/L (38-126); ANION GAP 8 (5-19); ASPARTATE AMINO TRANSFERASE 25 U/L (17-59); BILIRUBIN,DIRECT 0.1 mg/dL (0.0-0.4); BILIRUBIN,TOTAL 0.6 mg/dL (0.2-1.3); BLOOD UREA NITROGEN 12 mg/dL (7-20); CARBON DIOXIDE 29 mmol/L (22-30); CHLORIDE 103 mmol/L (98-107); CREATINE KINASE 151 U/L (55-170); GLUCOSE 107 mg/dL (75-110); POTASSIUM 4.9 mmol/L (3.6-5.0); TOTAL PROTEIN 7.4 g/dL (6.3-8.2)
[2019-06-21 13:07] LABS: CREATINE KINASE MB 0.25 ng/mL (<4.55)
[2019-06-21 13:27] LABS: TROPONIN I < 0.012 ng/mL
--- NOTE | 2019-06-21 14:38 | RADIOLOGY REPORT (SQ) ---
EXAM DESCRIPTION: CTA CHEST COMPLETED DATE/TIME: 06/21/2019 2:24 pm REASON FOR STUDY: chest pain hx of pulmonary emboli a year ago COMPARISON: CT chest, 06/09/2018 TECHNIQUE: CT scan of the chest performed using helical scanning technique with dynamic intravenous contrast injection. Images reviewed with lung, soft tissue and bone windows. Reconstructed coronal and sagittal MPR images reviewed. Additional 3 dimensional post-processing performed to develop Maximal Intensity Projection images ([place] P). All images stored on PACS. All CT scanners at this facility use dose modulation, iterative reconstruction, and/or weight based d osing when appropriate to reduce radiation dose to as low as reasonably achievable (ALARA). [facility]: Dose Right [facility]: CareDose [facility]: Dose Right [facility]: Teradose 4D [facility]: [place] [employer] CONTRAST TYPE AND DOSE: contrast/concentration: Isovue 350.00 mg/ml; Total Contrast Delivered: 72.0 ml; Total Saline Delivered: 70.0 ml Contrast bolus optimized for the pulmonary arteries. RENAL FUNCTION: None required. The patient is less than 50 years old. RADIATION DOSE: CT Rad equipment meets quality standard of care and radiation dose reduction techniq ues were employed. CTDIvol: 27.5 - 33.1 mGy. DLP: 1150 mGy-cm. . LIMITATIONS: Marginal contrast bolus, main pulmonary artery HU = 137 FINDINGS: LUNGS AND PLEURA: No masses, infiltrates, or pneumothorax. No pleural effusions or pleura l calcifications. AORTA AND GREAT VESSELS: No aneurysm. Contrast bolus not optimized for the aorta. HEART: No pericardial effusion. No significant coronary artery calcifications. PULMONARY ARTERIES: Examination is limited by marginal contrast bolus, main pulmonary artery HU = 137 . Within this limitation, negative examination for pulmonary embolism. HILAR AND MEDIASTINAL STRUCTURES: No identified masses or abnormal nodes. HARDWARE: None in the chest. UPPER ABDOMEN: No significant findings. Limited exam. THYROID AND OTHER SOFT TISSUES: No masses. No adenopathy. BONES: No acute or significant finding. 3D MIPS: Confirm above findings. OTHER: No other significant finding. IMPRESSION: Examination is limited by marginal contrast bolus, main pulmonary artery HU = 137. With in this limitation, negative examination for pulmonary embolism. COMMENT: Quality ID # [id number]: Final reports with documentation of one or more dose reduction techniques (e.g., Automated exposure control, adjustment of the mA and/or kV according to patient size, use of iterative reconstruction technique) TECHNICAL DOCUMENTATION: JOB ID: [id number] [employer]- All Rights Reserved Reading location - IP/workstation name: [email or web address]
[2019-06-21 15:22] LABS: APPEARANCE,URINE CLEAR; BILIRUBIN,URINE NEGATIVE (NEGATIVE); COLOR,URINE YELLOW; GLUCOSE, URINE NEGATIVE (NEGATIVE); KETONES,URINE NEGATIVE (NEGATIVE); LEUKOCYTE ESTERASE,URINE NEGATIVE (NEGATIVE); NITRITE,URINE NEGATIVE (NEGATIVE); PROTEIN,URINE NEGATIVE (NEGATIVE); URINE SPECIFIC GRAVITY 1.023; UROBILINOGEN,URINE NEGATIVE mg/dL (<2.0)
[2019-06-21 15:36] LABS: ADD MANUAL MICROSCOPIC YES; WBC,URINE RARE /HPF
[2019-06-21 15:38] LABS: URINE AMPHETAMINES SCREEN NEGATIVE; URINE BARBITURATES SCREEN NEGATIVE; URINE BENZODIAZEPINES SCREEN NEGATIVE; URINE COCAINE SCREEN NEGATIVE; URINE MARIJUANA (THC) SCREEN UNCONFIRMED POSITIVE; URINE METHADONE SCREEN NEGATIVE; URINE PHENCYCLIDINE SCREEN NEGATIVE
--- NOTE | 2019-06-21 17:58 | ER Document Report ---
ED General - General Chief Complaint: Chest Pain Stated Complaint: CHEST TIGHTNESS Time Seen by Provider: 06/21/19 12:11 Primary Care Provider: [facility] [Primary Care Provider] - Follow up as needed Mode of Arrival: Wheelchair TRAVEL OUTSIDE OF THE [place] IN LAST 30 DAYS: No - HPI Notes: Patient is a 39-year-old male with a history of pulmonary emboli who presents emergency department for evaluation of chest pain and difficulty breathing. He describes a left-sided chest tightness with radiation into the left shoulder and associated difficulty breathing. He states this started this morning while he was driving. He has a history of pulmonary embolus, states that this pain does not feel similar, but he is concerned that might be the issue. He had a colonoscopy yesterday. 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 He did restart Xarelto last night. He denies any associated nausea, diaphoresis, near syncope. - Related Data Allergies/Adverse Reactions: No Known Allergies Allergy (Verified 06/21/19 11:42) Past Medical History - General Information source: Patient - Social History Smoking Status: Former Smoker Chew tobacco use (# tins/day): No Frequency of alcohol use: None Drug Abuse: Marijuana Family History: Reviewed & Not Pertinent, Other - PE Patient has suicidal ideation: No Patient has homicidal ideation: No - Past Medical History Cardiac Medical History: Reports: Hx DVT, Hx Hypercholesterolemia, Hx Hypertension, Hx Pulmonary Embolism Neurological Medical History: Denies: Hx Migraine, Hx Seizures Endocrine Medical History: Denies: Hx Diabetes Mellitus Type 1, Hx Diabetes Mellitus Type 2, Hx Hyperthyroidism, Hx Hypothyroidism Renal/ Medical History: Denies: Hx Peritoneal Dialysis GI Medical History: Reports: Hx Diverticulitis, Hx Gastroesophageal Reflux Disease, Hx Irritable Bowel Psychiatric Medical History: Reports: Hx Anxiety, Hx Attention Deficit Hyperactivity Disorder, Hx Post Traumatic Stress Disorder Past Surgical History: Reports: Hx Orthopedic Surgery - Spinal fusion - Immunizations Immunizations up to date: Yes Review of Systems - Review of Systems Constitutional: No symptoms reported EENT: No symptoms reported Cardiovascular: See HPI Respiratory: See HPI Gastrointestinal: No symptoms reported Genitourinary: No symptoms reported Musculoskeletal: No symptoms reported Skin: No symptoms reported Neurological/Psychological: No symptoms reported Physical Exam - Vital signs Vitals: Temp Pulse Resp BP Pulse Ox 98.5 F 101 H 18 162/106 H 100 06/21/19 11:50 06/21/19 11:50 06/21/19 11:50 06/21/19 11:50 06/21/19 11:50 - Notes Notes: Vital signs reviewed, please refer to chart. Head is normocephalic, atraumatic. Pupils equal round, reactive to light. Neck is supple without meningismus. Heart is regular rate and rhythm. Lungs are clear to auscultation bilaterally. As well as nontender. Abdomen is soft, nontender, normoactive bowel sounds throughout. Extremities without cyanosis, clubbing. Posterior calves are nontender. Peripheral pulses are equal. Skin is warm and dry. Patient is awake, alert, neurological exam is nonfocal. Course - Re-evaluation Re-evalutation: 06/21/19 17:55 Patient presents emerged department for evaluation. He was placed on a pocket secretary assembler, laboratory investigations and imaging were ordered as through triage. Amatory investigations were unremarkable. CT angiogram failed to reveal any significant pulmonary embolus. Patient's heart rate is in the 60s. Despite the IV contrast bolus not being timed optimally, I do not have a strong concern for a clinically significant pulmonary embolus in this patient with a heart rate in the 60s. He is oxygenating well. He is in no distress, and his symptoms do not feel similar to pulmonary embolus in the past. He is back on his Xarelto. I do not have a clear etiology for this patient's pain at this time, this was explained to him. He is to return to the ER with worsening or new concerning symptoms of any sort. - Vital Signs Vital signs: Temp Pulse Resp BP Pulse Ox 98.5 F 101 H 11 L 132/86 H 100 06/21/19 11:50 06/21/19 11:50 06/21/19 15:01 06/21/19 15:01 06/21/19 11:50 - Laboratory Result Diagrams: 06/21/19 12:25 06/21/19 12:25 Laboratory results interpreted by me: 06/21/19 12:25 Seg Neutrophils % 81.6 H - Diagnostic Test Radiology reviewed: Reports reviewed Radiology results interpreted by me: 06/21/19 17:57 Chest/Abdomen CTA 06/21/19 12:14 IMPRESSION: Examination is limited by marginal contrast bolus, main pulmonary artery HU = 137. Within this limitation, negative examination for pulmonary embolism. - EKG Interpretation by Me Additional EKG results interpreted by me: 06/21/19 17:57 Sinus mechanism with a rate of 91 bpm. Left axis deviation. Nonspecific ST changes, but no acute changes concerning for ischemia or infarction. No old studies available for comparison. Discharge - Discharge Clinical Impression: Chest pain Qualifiers: Chest pain type: unspecified Qualified Code(s): R07.9 - Chest pain, unspecified Condition: Stable Disposition: HOME, SELF-CARE Instructions: Chest Pain of Unclear Cause ([facility]) Additional Instructions: No clear cause was found for your chest pain today. Please continue take your regular medications as prescribed. Follow-up with primary care this week. Return to the emergency department with worsening or new concerning symptoms of any sort. Referrals: [facility] [Primary Care Provider] - Follow up as needed
[2019-06-21 18:23] VITALS: BP 139/84
--- NOTE | 2019-06-22 08:44 | EKG REPORT ---
SEVERITY:- BORDERLINE ECG - SINUS RHYTHM LEFT AXIS DEVIATION BORDERLINE T WAVE ABNORMALITIES : Confirmed by: Alexa Singletary MD 22-Jun-2019 08:44:04
== END 2019-06-21 18:28 | disposition home or self-care (01) ==
LOC: ER 11:39
DX: R07.9 Chest pain, unspecified (principal); R06.00 Dyspnea, unspecified; E78.00 Pure hypercholesterolemia, unspecified; I10 Essential (primary) hypertension; Z86.711 Personal history of pulmonary embolism; Z79.01 Long term (current) use of anticoagulants
CPT/HCPCS: 36415; 71275; 80053; 80307; 81001; 82550; 82553; 84484; 85025; 85610; 85730; 93005; 93010; 99285